=== PATIENT | female | born 1965 | race Caucasian/White ===

== ENCOUNTER 2017-08-15 12:36 | Emergency (ER) | payer MEDICAID, SELFPAY ==
[2017-08-15 12:37] VITALS: BP 153/94; PULSE 88; RESP 16; TEMP 36.7; O2SAT 97; BMI 33.6
--- NOTE | 2017-08-15 12:46 | RAD_ITS ---
STUDY: X-RAY - RIGHT SHOULDER REASON FOR EXAM: Female, 52 years old. Right shoulder pain following a fall. TECHNIQUE: 2 view(s) of the shoulder. COMPARISON: None. FINDINGS: Normal glenohumeral articulation. Normal acromioclavicular joint. Normal acromion. Normal humeral head and visualized proximal humerus. The soft tissue structures are unremarkable. Normal visualized pulmonary apex. RAD/Shoulder min 2 Views IMPRESSION: Normal x-ray examination of the shoulder. Electronically Signed: Eric Vee MD at 13:18 EDT Tel [phone], Service support ,
--- NOTE | 2017-08-15 12:49 | ED.VISSUMM ---
- ER Visit Summary Date of Service: 08/15/17 Chief Complaint: Right shoulder and arm pain History of Present Illness: The patient is a 52 F who tripped and fell, injuring her right upper arm. She states her right arm twisted behind her. She is complaining of pain to the right shoulder and upper arm. She is right-hand dominant. She states when she moves her right arm she gets pain that shoots from her shoulder down to her wrist. Patient denies striking her head. She denies lower extremity injury. She is not on anticoagulants. Physical Examination: Vital signs are significant for blood pressure 153/94, otherwise normal. Patient sitting upright in bed. She is alert and talkative. Head and neck examination was no external sign of trauma. She has no midline cervical tenderness. Heart is regular rate and rhythm. Lung sounds are clear. Right upper extremity examination was tenderness across the right shoulder and over the upper humerus. Strong distal pulses are noted. There is no tenderness over the clavicle, elbow, or forearm. Strong distal pulses are noted. Good sensation is noted. Test Results: Right shoulder and right humerus x-rays are obtained and unremarkable. Emergency Department Course and Treatment: Patient is given [place] for pain. I discussed with her that x-ray images are normal, but she still may have a ligament or tendon injury. She will follow-up with her orthopedic physician for further testing. Treatment Plan: [] Disposition: Discharge Impression: Right shoulder sprain, suspect internal derangement This note was generated with [employer] dictation software. It may contain incorrect words, spelling, and punctuation that were not noted in review of the chart prior to signing ED Disposition - Plan for ED Patient: Chief Complaint: Upper Extremity Injury Referrals: Bi Higgins [Primary Care Provider] -
[2017-08-15] MEDS: HYDROcodone Bitartrate/Apap 5/325 Tablet PO ×2 (12:50→14:05)
--- NOTE | 2017-08-15 13:05 | RAD_ITS ---
STUDY: X-RAY - RIGHT HUMERUS REASON FOR EXAM: Female, 52 years old. Severe pain following a fall. TECHNIQUE: 2 view(s) of the humerus. COMPARISON: None. FINDINGS: Normal visualized humerus. There is no demonstrated fracture or osseous destructive process. There is no demonstrated soft tissue abnormality. RAD/Humerus min 2 Views IMPRESSION: Normal x-ray examination of the humerus. Electronically Signed: Eric Vee MD at 13:25 EDT Tel [phone], Service support ,
--- NOTE | 2017-08-15 14:05 | DCINST.ED_ITS ---
ED Disposition - Plan for ED Patient: Disposition: Home or Assisted Living Chief Complaint: Upper Extremity Injury Instructions: ED Sprain Shoulder Prescriptions: Hydrocodone/Acetaminophen [[place] 5-325 Tablet] 1 - 2 each PO 4X/DAY PRN PRN 5 Days #20 tablet PRN Reason: Pain Referrals: Elijah Davis MD [STAFF PHYSICIAN] - As soon as possible
[2017-08-15 14:12] VITALS: BP 159/87; PULSE 63; RESP 16; O2SAT 95
== END 2017-08-15 14:17 | disposition home or self-care (01) ==
PROVIDERS: Emergency Provider Emergency Medicine; Family Provider Family Medicine; PCP Family Medicine
DX: S43.401A Unspecified sprain of right shoulder joint, initial encounter (principal); K21.9 Gastro-esophageal reflux disease without esophagitis; Z72.0 Tobacco use; Z79.899 Other long term (current) drug therapy; W01.0XXA Fall on same level from slipping, tripping and stumbling without subsequent striking against object, initial encounter; Y93.01 Activity, walking, marching and hiking; Y92.89 Other specified places as the place of occurrence of the external cause; Y99.8 Other external cause status
CPT/HCPCS: 73030; 73060; 99283

== ENCOUNTER → 2019-04-12 12:46 | Outpatient (CLI) | payer MEDICAID, SELFPAY ==
--- NOTE | 2019-04-12 13:50 | CT_ITS ---
CT of the left lower extremity without contrast INDICATION: Preop knee arthroplasty, Arthur protocol. TECHNIQUE: Multiple thin section axial CT images of the left hip joint, left knee joint, and left ankle joint were obtained and filmed in bone windows. Furthermore, multiple sagittal and coronal reconstructions were performed. FINDINGS: No abnormal soft tissue mass, lymphadenopathy, fluid collection. No acute fracture or dislocation. No lytic or blastic lesions. No left hip arthrosis. Moderate left knee arthrosis particularly in the medial compartment with a small joint effusion. No tibiotalar joint arthrosis. IMPRESSION: Moderate left knee arthrosis. Electronically Signed: Lopez Real MD at 8:57 EST Tel , Service support , CT/Extremity Lower without Contra
== END ==
PROVIDERS: PCP Family Medicine; Referring Provider Orthopaedic Surgery; Visit Provider Orthopaedic Surgery
DX: M17.0 Bilateral primary osteoarthritis of knee (principal); M21.162 Varus deformity, not elsewhere classified, left knee
CPT/HCPCS: 73700

== ENCOUNTER 2019-04-23 11:01 | Observation (INO) | payer MEDICAID, SELFPAY ==
[2019-04-12 13:18] VITALS: BP 158/94; PULSE 78; RESP 16; TEMP 36.7; O2SAT 98; BMI 35.1
--- NOTE | 2019-04-12 13:31 | SDCEKG_ITS ---
Test Reason : Blood Pressure : / mmHG Vent. Rate : 076 BPM Atrial Rate : 076 BPM P-R Int : 162 ms QRS Dur : 076 ms QT Int : 380 ms P-R-T Axes : 061 038 053 degrees QTc Int : 427 ms Normal sinus rhythm Normal ECG Confirmed by NEL MARAVILLA, CAITLYN ([id number]), senior technical editor MEY BOYKIN ([id number]) on 04/16/2019 8:38:29 AM Referred By: Edgar Jefferson Confirmed By:JOSIE NEUMANN MD
[2019-04-23] VITALS (14 sets, daily range): BP systolic 104–162; BP diastolic 46–92; PULSE 56–82; RESP 16–20; TEMP 36.1–37.3; O2SAT 94–100; BMI 35.1; BMI 35.2
[2019-04-23 09:36] LABS: Bedside Glucose 95 mg/dL (70-110)
[2019-04-23] MEDS: Triamcinolone Acetonide 40 MG/ML Vial (09:52)
[2019-04-23] MEDS: Acetaminophen 500 MG Tablet 1000 MG PO ×2 (09:56→21:04)
[2019-04-23] MEDS: Gabapentin 600 MG Tablet PO (09:56)
[2019-04-23 10:02] LABS: Magnesium 2.1 mg/dL (1.6-2.6)
[2019-04-23] MEDS: Lactated Ringers 1,000 ML 999 ML IV (10:20)
[2019-04-23] MEDS: Cefazolin 2 GM in 0.9% Normal Saline 100 ML IV (10:51)
--- NOTE | 2019-04-23 11:02 | RAD_ITS ---
STUDY: X-RAY - LEFT KNEE REASON FOR EXAM: Female, 54 years old. POST-OP TOTAL KNEE. TECHNIQUE: 2 view(s) of the knee. COMPARISON: None. FINDINGS: There is a left knee arthroplasty with overlying skin dav and subcutaneous gas compatible with a 3 part left knee replacement in anatomic position and alignment. RAD/Knee 1 or 2 Views IMPRESSION: Post left knee arthroplasty. Electronically Signed: Selina Manjarrez MD at 13:41 EDT Tel , Service support ,
--- NOTE | 2019-04-23 11:05 | KNEE_PTH ---
PATIENT: TARI BHATTI LOC: MS3 U#:[id number] AGE/SX: 54/F ROOM: [facility] [place] RE04/23/[address]: Dr. Edgar Jefferson DO : 1965 BED: 1 DIS: 04/24/2019 SPEC #: [id number] RECD: 04/23/19 12:59 STATUS: JOHNATHAN REQ #: [id number] CONRAD: 04/23/19 11:[address]: Edgar Jefferson DEPT: SURGICAL PATHOLOGY RECD BY: Jarred Catalan ENTERED: 04/23/19 14:00 SP TYPE: TOTAL KNEE OTHR DR: Dr. Bi Higgins DO Tissues: Knee, NOS Procedures: Decalcification bone/plaque Surgery Specimen Level IV HEADER OPERATION: ERAS, left total knee replacement robotic arm assist PRE-OP DIAGNOSIS: Bilateral primary osteoarthritis TISSUE SUBMITTED: Left knee bone and soft tissue MICROSCOPIC DIAGNOSIS Bone and soft tissue, left knee, total knee replacement/resection: Pieces of bone with degenerative osteoarthritic changes. Fibroadipose tissue, fibroconnective tissue and reactive synovial tissue. BRINA:wanda 04/26/19 MICROSCOPIC DESCRIPTION Slides are reviewed. GROSS DESCRIPTION Received is one container designated bone and soft tissue left knee. The specimen consists of multiple fragments of ruiz-yellow bone measuring in aggregate 15 x 14 x 1.5 cm. Also in the specimen container are multiple fragments of yellow-white soft tissue measuring in aggregate 2 x 1 x 0.5 cm. A number of bony fragments contain articular surfaces consistent with tibial plateau and femoral condyle and displaying prominent osteophyte formation, eburnation, and bone erosion. Research Statistician sections are submitted in two cassettes as follows: 1 - soft tissue, 2 - bone after decalcification. / AM:wanda 04/23/19 TC:5 [facility]: [id number], [id number]
[2019-04-23] MEDS: Lactated Ringers 1,000 ML 100 ML IV (12:30)
[2019-04-23 13:43] LABS: Hematocrit 38.9 % (37-47); Hemoglobin 12.5 g/dL (12.0-15.0); Mean Corp Hgb Conc 32.1 g/dL (32-36); Mean Corpuscular Hgb 31.4 pg (27.0-32.0); Mean Corpuscular Volume 97.7 fL (81-99); Mean Platelet Vol. 10.3 fl (6.2-12.0); Platelet Count 243 K/mm3 (150-450); RBC Distribution Width CV 12.5 % (11.6-14.6); RBC Distribution Width SD 45.4 fl (35.1-43.9); Red Blood Count 3.98 M/mm3 (4.2-5.4); White Blood Count 6.6 K/mm3 (4.4-11.0)
[2019-04-23 13:58] LABS: Anion Gap 2 (5-15); BUN 11 mg/dL (7-18); BUN/Creat Ratio 15.3 RATIO (10-20); Calcium,Total 8.5 mg/dL (8.5-10.1); Chloride 111 mmol/L (98-107); Creatinine, Serum 0.72 mg/dL (0.55-1.02); EST Glomerular Filtration Rate 90 mL/min (>60); Est Glom Filt Rate - Afr Amer 109 mL/min (>60); Estimated Creatinine Clearance 88.88 ml/min; Glucose 114 mg/dL (74-106); Potassium 3.9 mmol/L (3.5-5.1); Sodium Level 142 mmol/L (136-145)
--- NOTE | 2019-04-23 14:45 | PCM.OPRPT ---
Report of Operation Date of Procedure: 04/23/19 Pre-Operative Diagnosis: OA b/l knees Post-Operative Diagnosis: same Surgery/Procedure Performed:: Left TKR, cortisone injection right knee supervisor detasseling crew: Torsten Ugalde Type of Anesthesia:: Spinal Anesthesiologist: Kingsley Garduno - Admit VTE Documentation VTE Present on Admission: No VTE Mechan Device Prophylaxis: SCD's, Thigh High MIGUEL Hose VTE Pharm Prophylaxis ordered?: Yes
[2019-04-23] MEDS: oxyCODONE 5 MG Tablet PO ×2 (15:37→21:03)
[2019-04-23] MEDS: Cefazolin 1 GM/50 ML BAG IV (18:43)
[2019-04-23] MEDS: 0.9% Saline Lock 10 ML Syringe IV (21:05)
[2019-04-23] MEDS: Aspirin 81 MG TAB.CHEW PO (21:05)
[2019-04-24 01:05] VITALS: BP 105/55; PULSE 66; RESP 18; TEMP 36.7; O2SAT 96
[2019-04-24] MEDS: oxyCODONE 5 MG Tablet PO ×3 (01:16→12:28)
[2019-04-24] MEDS: Cefazolin 1 GM/50 ML BAG IV (03:05)
[2019-04-24 05:47] LABS: Hematocrit 36.9 % (37-47); Hemoglobin 12.1 g/dL (12.0-15.0); Mean Corp Hgb Conc 32.8 g/dL (32-36); Mean Corpuscular Hgb 32.1 pg (27.0-32.0); Mean Corpuscular Volume 97.9 fL (81-99); Mean Platelet Vol. 10.9 fl (6.2-12.0); Platelet Count 230 K/mm3 (150-450); RBC Distribution Width CV 12.1 % (11.6-14.6); RBC Distribution Width SD 43.5 fl (35.1-43.9); Red Blood Count 3.77 M/mm3 (4.2-5.4); White Blood Count 14.4 K/mm3 (4.4-11.0)
[2019-04-24] MEDS: Acetaminophen 500 MG Tablet 1000 MG PO (05:54)
[2019-04-24] MEDS: 0.9% Saline Lock 10 ML Syringe IV (05:54)
[2019-04-24 06:12] LABS: Anion Gap 5 (5-15); BUN 16 mg/dL (7-18); BUN/Creat Ratio 22.8 RATIO (10-20); Calcium,Total 8.5 mg/dL (8.5-10.1); Chloride 106 mmol/L (98-107); EST Glomerular Filtration Rate 93 mL/min (>60); Est Glom Filt Rate - Afr Amer 113 mL/min (>60); Estimated Creatinine Clearance 91.42 ml/min; Glucose 224 mg/dL (74-106); Potassium 4.2 mmol/L (3.5-5.1); Sodium Level 139 mmol/L (136-145)
[2019-04-24 07:00] VITALS: BP 115/74; PULSE 67; RESP 14; TEMP 36.4; O2SAT 97
[2019-04-24] MEDS: Aspirin 81 MG TAB.CHEW PO (07:40)
--- NOTE | 2019-04-24 07:46 | PN.ORTHO_ITS ---
Subjective: Patient sitting at bedside eating breakfast. Patient states pain is well- managed. Denies chest pain, shortness of breath, calf pain, nausea vomiting. Patient states she is ready for discharge home. Objective: Dressings he has a 2 cm blood spot which is dry. Otherwise intact. Negative signs and symptoms of DVT. Vital signs and labs were reviewed and noted in the medical record. Patient is afebrile, neurovascular is otherwise intact. Patient is no respiratory distress, speaking in full sentences. - Physical Exam Vitals/I&O's: Vital Signs Temp Pulse Resp BP Pulse Ox 97.5 F L 67 14 115/74 97 04/24/19 07:00 04/24/19 07:00 04/24/19 07:00 04/24/19 07:00 04/24/19 07:00 Oxygen Flow Rate (L/min) 6 Oxygen Delivery Method Room Air Weight: 102 kg Body Mass Index (BMI) 35.2 Intake and Output for Last 24 Hours 04/22/19 04/23/19 04/24/19 23:59 23:59 23:59 Intake Total 2891.67 / 2891.67 350 / 350 Balance 2891.67 / 2891.67 350 / 350 General: Alert, Oriented x3, Cooperative HEENT: Atraumatic, PERRLA, EOMI, Normocephalic Neck: Supple, No JVD, Negative Carotid Bruits Lungs: Clear to auscultation, Normal air movement Cardiovascular: Regular rate, No murmurs Abdomen: Bowel Sounds Present, Soft, Non Tender Extremities: No edema, Capillary Refill Less than 3 Seconds Skin: No rashes, No breakdown Musculoskeletal: No Tenderness to Palpation of Joints or Extremities Neurological: Cranial nerves II-XII grossly intact Psych/Mental Status: Normal Affect, Appropriate, Alert and oriented to time, place, person, mood and affect Laboratory Results 04/23/19 09:32: POC Glucose 95 04/23/19 09:50: Magnesium 2.1 04/23/19 13:36: WBC 6.6, RBC 3.98 L, Hgb 12.5, Hct 38.9, MCV 97.7, MCH 31.4, MCHC 32.1, RDW Std Deviation 45.4 H, RDW Coeff of Noel 12.5, Plt Count 243, MPV 10.3 04/23/19 13:36: Sodium 142, Potassium 3.9, Chloride 111 H, Carbon Dioxide 29.0, Anion Gap 2 L, BUN 11, Creatinine 0.72, Estim Creat Clear Calc 88.88, Est GFR (MDRD) Af Amer 109, Est GFR (MDRD) Non-Af 90, BUN/Creatinine Ratio 15.3, Glucose 114 H, Calcium 8.5 04/24/19 05:20: WBC 14.4 H, RBC 3.77 L, Hgb 12.1, Hct 36.9 L, MCV 97.9, MCH 32.1 H, MCHC 32.8, RDW Std Deviation 43.5, RDW Coeff of Noel 12.1, Plt Count 230, MPV 10.9 04/24/19 05:20: Sodium 139, Potassium 4.2, Chloride 106, Carbon Dioxide 28.0, Anion Gap 5, BUN 16, Creatinine 0.70, Estim Creat Clear Calc 91.42, Est GFR (MDRD) Af Amer 113, Est GFR (MDRD) Non-Af 93, BUN/Creatinine Ratio 22.8 H, Glucose 224 H, Calcium 8.5 Current Medications Acetaminophen (Tylenol) 1,000 mg PO Q8 [facility] Last Admin: 04/24/19 05:54 Dose: 1,000 mg Documented by: Aspirin (Aspirin, Baby) 81 mg PO BID [facility] Last Admin: 04/24/19 07:40 Dose: 81 mg Documented by: Ondansetron HCl (Zofran) 4 mg IV Q8H PRN PRN PRN Reason: NAUSEA Oxycodone HCl (Oxyir) 5 - 10 mg PO Q4H PRN PRN PRN Reason: Pain Score 4-10/10 Last Admin: 04/24/19 07:39 Dose: 10 mg Documented by: Promethazine HCl (Phenergan) 12.5 mg IM Q6H PRN PRN; Protocol PRN Reason: NAUSEA/VOMITING Senna/Docusate Sodium (Senokot-S, [place]-Colace) 2 tablet PO BID [facility] Last Admin: 04/24/19 07:40 Dose: Not Given Documented by: Sodium Chloride () 10 - 40 ml IV UD PRN PRN Reason: SALINE FLUSH Last Admin: 04/24/19 05:54 Dose: 10 ml Documented by: Medical Necessity - Tobacco Use Smoking Status: Current every day smoker Tobacco Use: Cigarettes Assessment/Plan Status post left total knee arthroplasty Intra-articular injection of the right knee with 1% lidocaine, and 2 cc of Kenalog Plan 1. Continue all pain medications as prescribed 2. Continue physical therapy, weight-bear as tolerated with walker 3. Aspirin 81 mg 1 p.o. every 12 hours x30 days. 4. Encourage incentive spirometry 5. Discharge home today after p.m. therapy 6. Follow-up as scheduled.
--- NOTE | 2019-04-24 07:54 | PCM.DC.TKR ---
Discharge Diet: No Restrictions Discharge Activity: May Not Drive, May Shower, Use Walker May shower in (days): 2 Ice area for (Minutes): 20 - each hour while awake. Weight Bearing Status: Weight bearing as tolerated Elevate: Operative Extremity Additional Activity Instructions:: Wear elastic stockings for 2 weeks after your surgery. Call your doctor if your incision/area has: Continuous Slow Oozing, Sudden Increased Bleeding, Increased Pain/ Swelling, Increased Redness, Foul Smelling Discharge Call your doctor if you observe: Fever of 101 or Higher, Coldness, Increased Pain - in extremity, Numbness or Tingling, Change in Color, Calf discomfort, Uncontrolled pain Change Dressing in (Days):: 0 - and daily as needed. Remove Dressing in (days):: 8 Cleanse incision/area with: Soap & Water Allergies/Adverse Reactions: Allergies No Known Allergies Allergy (Verified 04/12/19 13:01) Medications to take at Discharge Albuterol Inhaler [Ventolin Hfa] 1 - 2 puff INHALATION Q6H PRN PRN 11/08/16 Omeprazole [Prilosec] 20 mg PO DAILY 11/08/16 Bupropion HCl [Wellbutrin Xl] 150 mg PO BID 04/12/19 Celecoxib [Celebrex] 200 mg PO DAILY 04/12/19 Acetaminophen [Tylenol] 1,000 mg PO Q8 #90 tab 04/24/19 Aspirin [Aspirin, Baby] 81 mg PO BID #60 tab.chew 04/24/19 Oxycodone [Oxyir] 5 - 10 mg PO Q4H PRN PRN 7 Days #84 tablet 04/24/19 The following prescriptions were given: Aspirin [Aspirin, Baby] 81 mg PO BID #60 tab.chew Transmission Status: Pending to [id number] Oxycodone [Oxyir] 5 - 10 mg PO Q4H PRN PRN 7 Days #84 tablet PRN Reason: Pain Score 4-10/10 Transmission Status: Sent to [facility] Acetaminophen [Tylenol] 1,000 mg PO Q8 #90 tab Transmission Status: Pending to [facility] Primary Care Physician: Bi Higgins [Primary Care Provider] - Test Results: Test results from this visit will be discussed in further detail at your follow-up appointment, if applicable. Please Follow Up With: Torsten Ugalde PA-C When: as scheduled (see pink sheet)
[2019-04-24 07:55] VITALS: BP 132/69; PULSE 73; RESP 16; TEMP 36.8; O2SAT 97
--- NOTE | 2019-04-24 11:00 | CASEMGMT ---
RN JAIDA Face to Face with patient for initial transition planning/care coordination assessment. RN CM introduced self and role at [facility]. Patient sitting in chair, alert and oriented, at bedside. Patient willing to participate in assessment and is able to answer all questions appropriately. Care providers, pharmacy, and demographics verified. Patient wishes to discharge home and is setup with [facility] for outpatient therapy. Patient states she has no further needs or concerns at this time. CM to follow for discharge planning needs that may arise. PCP: Jose Specialists: Ronny Landers Pharmacy: [facility] Insurance: [employer] Prescription Benefit: yes Living Will/HPOA: none LNOK: Living Arrangements: Patient lives with in single story home with 4 steps and railing to enter the home. Transportation: DME/HHC: Patient has shower chair, raised toilet, cane, walker, grab bars. Disposition Plan: Patient to discharge home with outpatient therapy, family support, and follow-up plans in place. Roxy GONZALEZ, RN, CM
== END 2019-04-24 12:58 | disposition home or self-care (01) ==
LOC: SDC 12:27 → MS3 12:27
PROVIDERS: Admitting Provider Orthopaedic Surgery; PCP Family Medicine; Referring Provider Orthopaedic Surgery; Visit Provider Orthopaedic Surgery
PROC: 0SRD0JZ Replacement of Left Knee Joint with Synthetic Substitute, Open Approach (ICD-10-PCS; CPT 27447; principal; 2019-04-23 10:35)
DX: M17.0 Bilateral primary osteoarthritis of knee (principal); F17.210 Nicotine dependence, cigarettes, uncomplicated; Z79.899 Other long term (current) drug therapy; J45.909 Unspecified asthma, uncomplicated; F32.9 Major depressive disorder, single episode, unspecified; H54.7 Unspecified visual loss; M21.162 Varus deformity, not elsewhere classified, left knee; K21.9 Gastro-esophageal reflux disease without esophagitis; F41.9 Anxiety disorder, unspecified
CPT/HCPCS: 01400; 20610; 27447; 64447; S2900; 36415; 73560; 80048; 82962; 83735; 85027; 87081; 88305; 88311; 93005; 96365; 96366; 97110; 97116; 97161; 97166; 97530; 99218; 99406; C1776; J7120; A4216; G0378; G0379

== ENCOUNTER → 2019-04-27 10:14 | Outpatient (CLI) | payer MEDICAID, SELFPAY ==
[2019-04-23 14:41] VITALS: BMI 35.2
--- NOTE | 2019-04-27 10:22 | VDLE_ITS ---
Reason For Study: Pain LLE Procedure LEFT Exam performed in department. GSV is normal. A preliminary report was called and/or faxed CFV is compressible, spontaneous, phasic, to Ronny. competent, and demonstrates normal augmentation. FV is compressible, spontaneous, phasic, competent and demonstrates normal augmentation. POP V is compressible, spontaneous, phasic, competent and demonstrates normal augmentation. T/P Trunk is compressible. PTV is compressible. LT PerV is compressible. Interpretation Summary Deep veins of the left lower extremity are patent and compressible segmentally. There is no evidence of left lower extremity deep vein thrombosis. Valvular competence appears intact within the proximal deep venous system on the left . The left great saphenous vein appears patent and compressible segmentally. Ordering Physician: Edgar Jefferson Referring Physician: Bi Higgins Performed By: Roxy Newton RVT
== END ==
PROVIDERS: PCP Family Medicine; Referring Provider Orthopaedic Surgery; Visit Provider Orthopaedic Surgery
DX: M79.662 Pain in left lower leg (principal)
CPT/HCPCS: 93971

== ENCOUNTER → 2019-06-19 11:20 | Outpatient (CLI) | payer MEDICAID, SELFPAY ==
[2019-04-23 14:41] VITALS: BMI 35.2
--- NOTE | 2019-06-19 11:23 | VDLE_ITS ---
Reason For Study: Pain RIGHT LEFT CFV is compressible, spontaneous, phasic, GSV is normal. competent and demonstrates normal CFV is compressible, spontaneous, phasic, augmentation. competent, and demonstrates normal Procedure augmentation. Exam performed in department. FV is compressible, spontaneous, phasic, A preliminary report was called and/or faxed competent and demonstrates normal to Ronny. augmentation. POP V is compressible, spontaneous, phasic, competent and demonstrates normal augmentation. T/P Trunk is compressible. PTV is compressible. LT PerV is compressible. Interpretation Summary Deep veins of the left lower extremity are patent and compressible segmentally. There is no evidence of left lower extremity deep vein thrombosis. Valvular competence appears intact within the proximal deep venous system on the left . The left great saphenous vein appears patent and compressible segmentally. Ordering Physician: Edgar Jefferson Referring Physician: Bi Higgins Performed By: Roxy Newton RVT
== END ==
PROVIDERS: PCP Family Medicine; Visit Provider Orthopaedic Surgery
DX: M79.605 Pain in left leg (principal)
CPT/HCPCS: 93971

== ENCOUNTER → 2019-06-25 14:51 | Outpatient (CLI) | payer MEDICAID, SELFPAY ==
[2019-04-23 14:41] VITALS: BMI 35.2
--- NOTE | 2019-06-25 14:58 | RAD_ITS ---
STUDY: X-RAY CHEST REASON FOR EXAM: Female, 54 years old. HEMOPTYSIS, COUGHING SINCE QUIT SMOKING May TECHNIQUE: PA and lateral views of the chest. COMPARISON: Comparison is made with prior study dated July 28, 2009. FINDINGS: The lungs are clear and expanded. Scattered calcified granulomas. There is no demonstrated pleural abnormality. Normal size heart. Normal mediastinum and reina. Normal visualized pulmonary arteries. There is atherosclerotic calcification of the aortic arch with tortuosity. There are mild degenerative changes of the visualized thoracic spine. Normal visualized ribs, clavicles, and shoulders. There is no demonstrated abnormality of the visualized soft tissue structures of the upper abdomen. RAD/Chest PA and Lateral IMPRESSION: No acute abnormality is seen. Electronically Signed: Eric Vee, at 15:33 EDT , Service support ,
--- OUTSIDE RECORDS SUMMARY | 2019-11-27 08:42 | XMS RPT_ITS | CCD ---
:1965 External Reference #:[id number] Author Organization [facility] Care Team Providers Name Role Phone Unavailable Unavailable Unavailable Results Result Name Value Range Unit Interpretation Flag Date Location ct chest w/ contrast on 2019-07-11 CT Chest w/ Patient Name: TONYA BHATTI Normal 07-11-2019 [facility] Right Hemisphere Contrast System (0 0000) CT Exam Date/Time 07/11/2019 09:10:[address] Chest w/ Contrast Ordering Physician DO SAMUEL EUGENE F. Accession Number [id number] CPT4 Codes 54338 (), Q9967 (CT ISOVUE 370MG/[id number]) Reason For Exam hemoptysis, correction smoker Report CT chest with contrast HISTORY: Smoking, hemoptysis Protocol: 3 mm axial images with intravenous contrast Lungs and pleural spaces are clear. No lymphadenopathy. Adre nal glands are normal. No osseous abnormality. IMPRESSION: Normal examination. Report Dictated on Workstation: [id number] Final Dictating Physician: MD CHAU MALAY Signed Date and Time: 07/11/2019 1:18 pm Signed by: MD CHAU MALAY Transcribed Date and Time: 07/11/2019 1:19 progress on 2018-11 PROGRESS HNO ID: [id number] Normal 12-12-2018 [facility] Author: Lori Wong [facility] ([id number]) Service: ? Author Type: ? Type: Progress Notes Filed: 12/12/2018 11:38 AM Note Text: Radiology Service Progress Note PATIENT NAME: Tonya Gutiérrez DATE OF SERVICE: December 12, 2018 TIME: 11:38 AM PATIENT IDENTITY VERIFICATION COMPLETED USING TWO (2) METHOD S: Name and Date of confirmed by patient verbally. PATIENT GENDER DATA: Female. status: : No status: NO. PATIENT RELEVANT IMPLANT DATA REVIEWED: Not Applicable RADIOLOGY DEPARTMENT: Mammography PERIPHERAL IV DATA: Not applicable SIGNED BY: Lori Marvin Rt December 12, 2018 11:38 AM PROGRESS HNO ID: [id number] Normal 12-12-2018 [facility] Author: Deyanira Rock [facility] ([id number]) Service: ? Author Type: Perinatal Nurse Type: Progress Notes Filed: 12/12/2018 11:38 AM Note Text: Radiology Service Progress Note PATIENT NAME: Tonya Gutiérrez DATE OF SERVICE: December 12, 2018 TIME: 11:38 AM PATIENT IDENTITY VERIFICATION COMPLETED USING TWO (2) METHOD S: Name and Date of confirmed by patient verbally. PATIENT GENDER DATA: Female. status: : No status: N/A PATIENT RELEVANT IMPLANT DATA REVIEWED: Not Applicable RADIOLOGY DEPARTMENT: Ultrasound PERIPHERAL IV DATA: Not applicable SIGNED BY: DEYANIRA ROCK RDMS RVT December 12, 2018 11:38 AM [facility] [employer] breast Simalaya rt on 2018-12-12 [facility] US BREAST * * *Final Report* * * Normal [facility] RT DATE OF EXAM: Dec 12 2018 11:33AM [facility] ([id number]) WRU [id number] - [facility] BREAST [facility] RT / PROCEDURE REASON: Breast lump on right side at 7 o'clock pos ition * * * * Physician Interpretation * * * * #[id number] - [facility] DIAGNOSTIC ZAKI #[id number] - [facility] BREAST [facility] RT BILATERAL DIGITAL DIAGNOSTIC MAMMOGRAM WITH CAD: 12/12/2018 HISTORY: Breast Lump right /SEE TECH NOTE ,\BILATERAL DIAGNO STIC MAMMOGRAM Breast Lump On Right Side At 7 O'Clock Position. RESULT: TECHNIQUE: The study was acquired using full field digital t echnology and interpreted from soft copy. Current study was also evaluated with a Computer Aided Detec tion (CAD). Comparison is made to exams dated: 11/09/2017 mammogram - [facility] and 10/13/2016 mammogram - [facility]. The tissue of both breasts is predominantly fatty. No significant masses, calcifications, or other findings are seen in either breast. IMPRESSION: INCOMPLETE: NEEDS ADDITIONAL IMAGING EVALUATION There is no abnormality seen in the right breast to correspo nd with the palpable abnormality, however, ultrasound is recommended. LIMITED ULTRASOUND OF RIGHT BREAST: 12/12/2018 RESULT: Comparison is made to exams dated: 11/09/2017 mammogram - [facility] and 10/13/2016 mammogram - [facility] nter. Color flow and real-time ultrasound of the right breast lowe r outer quadrant were performed. Rinaldi scale images of the real-time examination were reviewed. There is a benign dilated duct in the right breast at 8 o'cl ock anterior depth. This dilated duct displays no posterior acoustic shad owing or enhancement. This correlates as palpated. IMPRESSION: BENIGN FINDING There is no sonographic evidence of malignancy. The dilated duct in the right breast is consistent with duct ectasia and is benign. There is a small duct at the site of clinical con cern. No evidence of a mass. Correlate clinically to determine if thi s represents the palpable abnormality of concern. Return to annual mammogram screening schedule is recommended . Jorje Bhakta M.D. tab/penrad:12/12/2018 11:39:33 Multiple national specialty organizations have released fifi st cancer screening guidelines for women at average risk for developin g breast cancer - guidelines that are based on both evidence and opin ion, yet differ on when to start and how often to screen for breast c ancer. With representation from Breast Imaging, Internal Medicine, Women 's Health, Family Medicine, and Medical/Surgical Oncology, the [facility] has carefully reviewed the data and reached the following consen carrie: 1) All women should engage in shared decision-making with eir providers to decide when to start and how often to screen; 2) All women should have the opportunity to start screening mammography at age 40; 3) For women ages 45-55, we recommend annual screening mammo grams; 4) For women ages 55 and over, we support both the transitio n from an annual to a biennial interval if this aligns more with patie nt's values and preferences, or continuation with annual screening; 5) All women should discuss with their providers when to sto p screening mammograms. Leaf Sucker Operator(s): RT Vicki(R)(M), [facility]; Deyanira Rock [facility] letter sent: Return to Annual OVERALL STUDY BIRADS: 2 Benign finding Truck Service Technician: Mariposa Transcribe Date/Time: Dec 12 2018 10:45A Dictated by : JORJE BHAKTA MD This examination was interpreted and the report reviewed and electronically signed by: JORJE BHAKTA MD on Dec 12 2018 11:39AM EST [id number] [facility] diagnostic zaki on 2018-12-12 [facility] DIAGNOSTIC ZAKI * * *Final Report* * * Normal 12-12-2018 [facility] DATE OF EXAM: Dec 12 2018 10:44AM Goodman WRW [id number] - [facility] DIAGNOSTIC ZAKI / ([id number]) PROCEDURE REASON: Breast lump on right side at 7 o'clock pos ition * * * * Physician Interpretation * * * * RESULT: #[id number] - [facility] DIAGNOSTIC ZAKI #[id number] - [facility] US BREAST LTD RT BILATERAL DIGITAL DIAGNOSTIC MAMMOGRAM WITH CAD: 12/12/2018 HISTORY: Breast Lump right /SEE TECH NOTE ,\BILATERAL DIAGNO STIC MAMMOGRAM Breast Lump On Right Side At 7 O'Clock Position. RESULT: TECHNIQUE: The study was acquired using full field digital t echnology and interpreted from soft copy. Current study was also evaluated with a Computer Aided Detec tion (CAD). Comparison is made to exams dated: 11/09/2017 mammogram - [facility] and 10/13/2016 mammogram - [facility] nter. The tissue of both breasts is predominantly fatty. No significant masses, calcifications, or other findings are seen in either breast. IMPRESSION: INCOMPLETE: NEEDS ADDITIONAL IMAGING EVALUATION There is no abnormality seen in the right breast to correspo nd with the palpable abnormality, however, ultrasound is recommended. LIMITED ULTRASOUND OF RIGHT BREAST: 12/12/2018 RESULT: Comparison is made to exams dated: 11/09/2017 mammogram - [facility] and 10/13/2016 mammogram - [facility] nter. Color flow and real-time ultrasound of the right breast lowe r outer quadrant were performed. Rinaldi scale images of the real-time examination were reviewed. There is a benign dilated duct in the right breast at 8 o'cl ock anterior depth. This dilated duct displays no posterior acoustic shad owing or enhancement. This correlates as palpated. IMPRESSION: BENIGN FINDING There is no sonographic evidence of malignancy. The dilated duct in the right breast is consistent with duct ectasia and is benign. There is a small duct at the site of clinical con cern. No evidence of a mass. Correlate clinically to determine if thi s represents the palpable abnormality of concern. Return to annual mammogram screening schedule is recommended . Jorje lynn/mariposa:12/12/2018 11:39:33 Multiple national specialty organizations have released fifi st cancer screening guidelines for women at average risk for developin g breast cancer - guidelines that are based on both evidence and opin ion, yet differ on when to start and how often to screen for breast c ancer. With representation from Breast Imaging, Internal Medicine, Women 's Health, Family Medicine, and Medical/Surgical Oncology, the [facility] has carefully reviewed the data and reached the following consen carrie: 1) All women should engage in shared decision-making with eir providers to decide when to start and how often to screen; 2) All women should have the opportunity to start screening mammography at age 40; 3) For women ages 45-55, we recommend annual screening mammo grams; 4) For women ages 55 and over, we support both the transitio n from an annual to a biennial interval if this aligns more with patie nt's values and preferences, or continuation with annual screening; 5) All women should discuss with their providers when to sto p screening mammograms. Leaf Sucker Operator(s): Lori Wong, RT(R)(M), [facility]; Deyanira Rock, [facility] letter sent: Return to Annual OVERALL STUDY BIRADS: 2 Benign finding Truck Service Technician: Mariposa Transcribe Date/Time: Dec 12 2018 10:45A Dictated by: JORJE BHAKTA MD This examination was interpreted and the report reviewed and electronically signed by: JORJE BHAKTA MD on Dec 12 2018 11:39AM EST [id number] cnco on 2018-12-12 [facility] HNO ID: [id number] Normal 12-12-2018 [facility] Author: Mammography Coordinator ([id number]) Service: ? Author Type: Physician Type: Letter Filed: 12/13/2018 11:32 PM Note Text: December 12, 2018 PID: [id number] Tonya Gutiérrez [address] [place] [address] Dear Ms. Gutiérrez, We are pleased to inform you that the results of your recent breast imaging exam on 12/12/2018 are normal and we recommend that you return to your annual screening Mammography schedule. Early detection of cancer is very important. We also underst and recommendations regarding breast cancer screening are contro versial. Please discuss with your primary care provider which strateg y is best for you and whether a mammogram is right for you. Your imaging studies and report will be kept on file at [facility] as part of your permanent medical record and are available f or your continuing care. Thank you for allowing us to help in meeting your health car e needs. Sincerely, Dr. Bhakta Interpreting Radiologist [facility] (Return to Annual Mammogram schedule) [facility] HNO ID: [id number] Normal 12-12-2018 [facility] Author: Mammography Coordinator ([id number]) Service: ? Author Type: Physician Type: Letter Filed: 12/13/2018 11:32 PM Note Text: December 12, 2018 PID: [id number] Tonya Gutiérrez [address] [place] [address] Dear Ms. Gutiérrez, We are pleased to inform you that the results of your recent breast imaging exam on 12/12/2018 are normal and we recommend that you return to your annual screening Mammography schedule. Early detection of cancer is very important. We also underst and recommendations regarding breast cancer screening are contro versial. Please discuss with your primary care provider which strateg y is best for you and whether a mammogram is right for you. Your imaging studies and report will be kept on file at [facility] as part of your permanent medical record and are available f or your continuing care. Thank you for allowing us to help in meeting your health car e needs. Sincerely, Dr. Bhakta Interpreting Radiologist [facility] (Return to Annual Mammogram schedule) progress on 2018-11 PROGRESS HNO ID: [id number] Normal 11-30-2018 [facility] Author: Rachel Corona ([id number]) Service: ? Author Type: Physician Type: Progress Notes Filed: 11/30/2018 9:45 AM Note Text: Tonya Gutiérrez is a 53 year old who presents for he r annual gynecologic exam with complaints, uterine prolapse. Bulging worse as day goes on. Not painful, pressure. Tries t o reduce it. Sometimes feels like bladder doesn't empty completely. Drink s coffee, propel. Sometimes feels it is difficult to start stream, has to change positions. No menses since ablation. Hot flashes and night sweats noted . Few times a day, better than a couple of months ago. Postmenopausal: likely. HRT use: No. Last Pap: 11/21/2017 normal HPV: 11/14/2017 negative History of abnormal pap: yes Last mammogram: 2017 normal History of abnormal mammogram: No Sexually active: Yes OB History T3 L3 SAB0 TAB1 Ectopic0 Multiple0 Live Births3 PAST MEDICAL HISTORY Diagnosis Date - Anxiety - Depression - Diverticulosis - Esophageal reflux Gastroesophageal reflux - Hyperplastic rectal polyp - Rotator cuff tear - Unspecified asthma(493.90) PAST SURGICAL HISTORY Procedure Laterality Date - COLONOSCOPY 10/26/2018 sessile , hyperplasitc rectal polyp , diverticulosis - COLPOSCOPY W BX CERVIX 11/12/2016 - HYSTEROSCOPY, SURGICAL; WITH ENDOME 11/12/2016 Nancy - LIGATE FALLOPIAN TUBE 03/04/1988 FAMILY HISTORY Problem Relation Age of Onset - Hypertension Mother - Alzheimer's Disease Mother age 67 - Breast Cancer Mother 69 - Diabetes Father - Heart Maternal Grandmother - Diabetes Maternal Grandmother - Heart Maternal Grandfather - Cancer Maternal Grandfather lung and tongue - Cancer Maternal Uncle liver - Diabetes Maternal Aunt - Diabetes Maternal Uncle - Seizures Paternal Aunt mothers family - Asthma Paternal Aunt mothers family - other (migraines) Paternal Aunt migraines: takes shots - other (htn) Paternal Aunt - other (heartattack) Paternal Aunt - Cancer Brother 52 liver SOCIAL HISTORY Social History Tobacco Use - Smoking status: Current Every Day Smoker Packs/day: 1.00 Years: 24.00 Pack years: 24.00 Types: Cigarettes - Smokeless tobacco: Never Used Substance Use Topics - Alcohol use: No - Drug use: No REVIEW OF SYSTEMS Abdomen: No abdominal pain, nausea, vomiting, diarrhea, or c onstipation. No bloating, early satiety, indigestion, or increased flatul ence. Bladder: see HPI Breast: No breast lumps, nipple d/c, overlying skin changes, redness or skin retraction Allergies and current medication updated:Yes EXAM: Ht 5' 6 (1.68m) Wt 215 lb (97.5kg) BMI 34.72 kg/( m2). GENERAL: pleasant, female in no apparent distress HEENT: Normocephalic, atraumatic, mucus membranes moist and no lesions NECK: Supple, full range of motion, no adenopathy and thyroi d normal DERMATOLOGY: Normal, without lesions, non-icteric and non-hi rsute BREAST: soft, non-tender, symmetric, no dominant mass on lef t, normal nipple-areolar complex, no lymphadenopathy and no nipple dis charge, on right under areola there at 6-7 there is a 1 cm oval, dense area, not mobile, poorly delineated from remaining tissues CHEST: Normal inspiratory effort ABDOMEN: soft, non-tender and no masses PELVIC: external genitalia normal, normal Bartholin's glands , urethra, Nikiski's glands, no vulvar lesions, no cervical lesions, phys iologic discharge present, normal appearing perineal body and perian al region, cystocele 2nd degree, rectocele 1st degree, cervical prolaps e 2nd degree, lateral wall bulging as well BIMANUAL: uterus normal size, shape and consistency, no adne xal masses and non-tender RECTOVAGINAL: deferred. NEURO: alert and oriented x3,exam grossly non-focal EXTREMITIES: normal ASSESSMENT/PLAN: 1) Health maintenance: colonoscopy up to date check diagnostic mammo symptomatic prolapse, would like to consider surgery, consul t w/ urogyn and return for pessary fitting in interim encouraged decrease bladder irritants declines flu vaccine 2) Follow up one year or sooner as needed MD bob Arreola on 2018-11-30 [facility] Office Visit ([facility]) Normal 11-30-2018 [facility] TONYA Rai ([id number]) 1965 F [facility] Date Time Provider Department ([id number]) 11/30/18 9:00 AM RACHEL MARIANO During your visit today, we recorded the following informati on about you: Blood pressure Weight Height 128/84 97.5 kg 1.676 m Rachel Mariano MD 11/30/2018 9:45 AM Signed Tonya Gutiérrez is a 53 year old who presents for he r annual gynecologic exam with complaints, uterine prolapse. Bulging worse as day goes on. Not painful, pressure. Tries t o reduce it. Sometimes feels like bladder doesn't empty compl etely. Drinks coffee, propel. Sometimes feels it is difficult to start stream, has to cuellar ge positions. No menses since ablation. Hot flashes and night sweats noted . Few times a day, better than a couple of months ago. Postmenopausal: likely. HRT use: No. Last Pap: 11/21/2017 normal HPV: 11/14/2017 negative History of abnormal pap: yes Last mammogram: 2017 normal History of abnormal mammogram: No Sexually active: Yes OB History T3 L3 SAB0 TAB1 Ectopic0 Multiple0 Live Births3 PAST MEDICAL HISTORY Diagnosis Date - Anxiety - Depression - Diverticulosis - Esophageal reflux Gastroesophageal reflux - Hyperplastic rectal polyp - Rotator cuff tear - Unspecified asthma(493.90) PAST SURGICAL HISTORY Procedure Laterality Date - COLONOSCOPY 10/26/2018 sessile , hyperplasitc rectal polyp , diverticulosis - COLPOSCOPY W BX CERVIX 11/12/2016 - HYSTEROSCOPY, SURGICAL; WITH ENDOME 11/12/2016 Nancy - LIGATE FALLOPIAN TUBE 03/04/1988 FAMILY HISTORY Problem Relation Age of Onset - Hypertension Mother - Alzheimer's Disease Mother age 67 - Breast Cancer Mother 69 - Diabetes Father - Heart Maternal Grandmother - Diabetes Maternal Grandmother - Heart Maternal Grandfather - Cancer Maternal Grandfather lung and tongue - Cancer Maternal Uncle liver - Diabetes Maternal Aunt - Diabetes Maternal Uncle - Seizures Paternal Aunt mothers family - Asthma Paternal Aunt mothers family - other (migraines) Paternal Aunt migraines: takes shots - other (htn) Paternal Aunt - other (heartattack) Paternal Aunt - Cancer Brother 52 liver SOCIAL HISTORY Social History Tobacco Use - Smoking status: Current Every Day Smoker Packs/day: 1.00 Years: 24.00 Pack years: 24.00 Types: Cigarettes - Smokeless tobacco: Never Used Substance Use Topics - Alcohol use: No - Drug use: No REVIEW OF SYSTEMS Abdomen: No abdominal pain, nausea, vomiting, diarrhea, or constipation. No bloating, early satiety, indigestion, or increased flatulenc e. Bladder: see HPI Breast: No breast lumps, nipple d/c, overlying skin ch anges, redness or skin retraction Allergies and current medication updated:Yes EXAM: Ht 5' 6 (1.68m) Wt 215 lb (97.5kg) BMI 34.72 kg/( m2). GENERAL: pleasant, female in no apparent distress HEENT: Normocephalic, atraumatic, mucus membranes moist and no lesions NECK: Supple, full range of motion, no adenopathy and thyroi d normal DERMATOLOGY: Normal, without lesions, non-icteric and non-hi rsute BREAST: soft, non-tender, symmetric, no dominant mass on lef t, normal nipple-areolar complex, no lymphadenopathy and no nipp le discharge, on right under areola there at 6-7 there is a 1 c m oval, dense area, not mobile, poorly delineated from remaining tissues CHEST: Normal inspiratory effort ABDOMEN: soft, non-tender and no masses PELVIC: external genitalia normal, westley l Bartholin's glands, urethra, Nikiski's glands, no vulvar lesions, no cervical l esions, physiologic discharge present, normal appearing perineal body and perianal region, cystocel e 2nd degree, rectocele 1st degree, cervic al prolapse 2nd degree, lateral wall bulging as well BIMANUAL: uterus normal size, shape and consistency, no adne xal masses and non-tender RECTOVAGINAL: deferred. NEURO: alert and oriented x3,exam grossly non-focal EXTREMITIES: normal ASSESSMENT/PLAN: 1) Health maintenance: colonoscopy up to date check diagnostic mammo symptomatic prolapse, would like to consider surgery, cons ult w/ urogyn and return for pessary fitting in interim encouraged decrease bladder irritants declines flu vaccine 2) Follow up one year or sooner as needed Rachel Mariano MD Referring Provider: SELF [[id number]] Allergies As of Date: 11/30/2018 Noted Allergy Reaction SULFAMETHOXAZOLE-TRIMETHOPRIM 07/20/2005 8 - GI Upset 14 - Other: See Comments Date Reviewed: 11/30/2018 Reviewed by: Paige De La Torre Ma - Fully Assessed Reason for Visit: Yearly Exam [187] Primary Visit Diagnosis:History of abnormal cervical Pap sme ar [Z87.42] Other Visit Diagnoses:Encounter for screening for mayelin n papillomavirus (HPV) [Z11.51] Pap smear for cervical cancer screening [Z12.4] Encounter for screening mammogram for breast cancer [Z12.31] Cystocele, midline [N81.11] Complete uterovaginal prolapse [N81.3] Bladder dysfunction [N31.9] Breast lump on right side at 7 o'clock position [N63.13] Encounter for gynecological examination with abnormal finding [Z01.411] Order(s):[facility] SCREENING [1093877] Order #: [id number] FUTURE PAP FLUID CERVICAL SCREENING [9707452] Order #: [id number] [facility] DIAGNOSTIC BILAT [2698990] Order #: [id number] FUTURE BREAST LTD RT [[id number]] Order #: [id number] FUTURE CONSULT TO URO GYNECOLOGY [[id number]] Order #: [id number]: 1 Prescriptions as of 11/30/2018 Sig: CELECOXIB 200 MG CAPSULE Take 200 mg by mouth. CHOLECALCIFEROL (VITAMIN D3) * OMEPRAZOLE 40 MG CAPSULE,NIRAJ* DULERA 100 MCG-5 MCG/ACTUATIO* ALBUTEROL SULFATE HFA 90 MCG/* Inhale as instructed. IRON ORAL Take by mouth. HYDROCODONE 5 MG-ACETAMINOPHE* IBUPROFEN 600 MG TABLET Take 1 tablet by mouth every * Patient not taking: Reported on 10/09/2018 Problem List As Of Date 11/30/2018 Noted Resolved SEBACEOUS CYST [L72.3] INVALID FOR* ASTHMA UNSPECIFIED [J45.909] INVALID FOR* ESOPHAGEAL REFLUX [K21.9] INVALID FOR* TOBACCO USE DISORDER [F17.200] INVALID FOR* Uterine prolapse [N81.4] INVALID FOR* Cystocele, midline [N81.11] INVALID FOR* Lump or mass in breast [N63.0] INVALID FOR* Menorrhagia with irregular cycle [N92.1] INVALID FOR* Other correction (current) drug therapy [Z79.899]INVALID FOR* Change in bowel habits [R19.4] INVALID FOR* Mild asthma [J45.909] INVALID FOR* Disposition: Return in 1 year (on 12/01/2019) for Annual Monico mayberry Follow-up and Disposition History Recorded Encounter Status:Closed by RACHEL MARIANO MD on 11/30/18 surgical pathology on 2018-10-26 SURGICAL Specimen originated from [facility] Normal 10-26-2018 [facility] PATHOLOGY Specimen #: [id number] Clinic Submitting Physician: AROLDO BLOUNT [facility] ([id number]) FINAL DIAGNOSIS 1. Colon, biopsy (A) - Colonic mucosa with no diagnostic abn ormalities. 2. Colon, rectal polyp, biopsy (B) - Hyperplastic polyp. - No adenomatous epithelium identified. [facility] [place]/pastor 10/27/2018 Edgar Fajardo M.D., Ph.D. (Electronic Signature) SPECIMEN SUBMITTED A: RANDOM COLON, BIOPSIES B: RECTAL POLYP CLINICAL DATA CHANGE IN BOWEL HABITS GROSS DESCRIPTION A. Received in formalin are multiple pieces of ruiz, soft t issue aggregating to 1.2 x 0.2 x 0.2 cm. Totally submitted in one cassette. B. Received in formalin is one piece of ruiz, soft tissue tracy suring 0.5 x 0.2 x 0.2 cm. Totally submitted in one cassette. Gross examination performed at [facility], [address] [place] [address] 10/27/2018 1:25:18 AM Date of Report: 10/28/2018 Date of Procedure: 10/26/2018 Date of Receipt: 10/26/2018 Submitted by: AROLDO BLOUNT [facility] Diagnostic interpretation performed at [facility], [address] [facility] [address] [place] Number: [id number] obsolete on 2018-10 OBSOLETE Procedure (ASCNOR) Normal 10-26-2018 [facility] JAREDTONYA FARRIS ([id number]) 1965 F [facility] Date Time Provider Department ([id number]) 10/26/18 8:30 AM AROLDO BLOUNT During your visit today, we recorded the following informati on about you: Temperature Pulse Respiration Blood pressure 97.9 degrees 60/minute 16/minute 115/70 Weight Height 93.9 kg 1.676 m Sharee Topete RN 10/26/2018 7:50 AM Signed AMBULATORY PATIENT EDUCATION NOTE TOPIC: GI PROCEDURES: colonoscopy READINESS TO LEARN INSTRUCTION PROVIDED TO: Patient, readness to learn accessed prior to procedure, Family member and Patient and family member COGNITIVE ABILITY: Alert and oriented PTED MOTIVATION TO LEARN: Interested FAMILY SUPPORT: High - Very involved in pt care IPATIENT LEARNS BEST BY: Individual Instruction Written Instruction - Hand-outs Verbal Instruction FACTORS AFFECTING LEARNING: None PHYSICAL LIMITATIONS AFFECTING LEARNING: None Sharee Topete RN 10/26/2018 7:48 AM Signed Discharge instructions given and patient voices unders tanding. All questions answered. Sharee Blount MD 10/26/2018 8:56 AM Signed HISTORY AND PHYSICAL Tonya Serge Gutiérrez, 53 year old female Current history and physical on file: No Is a new History and Physical required for today's visit? Ye s Indication for procedure: Change in bowel movements PROCEDURE(S) SCHEDULED FOR: Colonoscopy with or without biopsies and with or without rem oval of polyps or lesions, dilation (any means), treatment of b leeding (any means), based on clinical findings. BASELINE BEHAVIOR: Calm BASELINE ORIENTATION: A AND O x3 All medications and allergies reviewed: Yes Skin Assessment: Warm dry muscus membranes pink Airway/Respiratory Assessment: Airway: visualization of the uvula- Yes Mouth: opening greater than 2 fingerbreadths- Yes Neck: full range of motion- Yes Breath sounds clear/equal- Yes Cardiac Assessment: Regular rate and rhythm without murmur Abdominal Assessment: Abdomen soft, non-tender, no masses or organomegaly. Sedation Plan: MAC Additional Comments: None MD Sharee Holly RN 10/26/2018 9:03 AM Signed POST OP LEARNING RESPONSE INSTRUCTION PROVIDED TO: Patient and family member METHOD OF INSTRUCTION: Written instruction - handouts Verbal instruction PATIENT / FAMILY RESPONSE: Verbalizes understanding of: POST -OPERATIVE INSTRUCTIONS-Correct actions to take to reduce postoperative complications FOLLOW-UP PLAN: Contact information given. SUPPLEMENTAL MATERIAL: Brochures given to patien t: diverticulosis, high fiber diet, colon polyp REFERRAL (RECOMMENDATION): None Electronically Signed By: Arcenio Topete RN In Department: AMBULATORY SURGERY Rebeca Smith APRN.CRNA 10/26/2018 11:00 AM Signed POST ANESTHESIA EVALUATION NOTE SERVICE DATE: 10/26/2018 SERVICE TIME: 9:00 AM : 1965 Vitals: 10/26/18 0811 10/26/18 0849 Temp: 36.9 ?C (98.4 ?F) 36.6 ?C (97.9 ?F) 10/26/18 0811 10/26/18 0849 BP: 155/75 115/70 10/26/18 0811 10/26/18 0849 Pulse: 68 60 10/26/18 0811 10/26/18 0849 Resp: 16 16 10/26/18 0811 10/26/18 0849 SpO2: 96% 96% Validated Vital Signs: Yes POST ANES STATUS: No apparent anesthetic complications. The patient is appropriately hydrated with stable respiratory and cardiovas cular status. Patient has safe and adequate airway con trol. The patient has appropriate pain relief and no significant post operative nausea or vom iting. The patient has achieved baseline mental status. Further assessment by Anesthesia Service: None Other Remarks: SIGNATURE: Rebeca Smith APRN.CRNA PATIENT NAME: Tonya Gutiérrez DATE: October 26, 2018 TIME: 11:00 AM PAGER/CONTACT #: [phone] Referring Provider: AROLDO BLOUNT [[id number]] Allergies As of Date: 10/26/2018 Noted Allergy Reaction SULFAMETHOXAZOLE-TRIMETHOPRIM 07/20/2005 8 - GI Upset 14 - Other: See Comments Date Reviewed: 10/26/2018 Reviewed by: Laura Rob RN - Fully Assessed Reason for Visit: Outpatient Colonoscopy [482] Cmt: change in bowel habits Visit Diagnosis:Change in bowel habits [R19.4] Order(s):COLONOSCOPY - DIAGNOSTIC [[id number]] Order #: [id number]. #:[id number] SURGICAL PATHOLOGY [[id number]] Order #: [id number] Prescriptions as of 10/26/2018 Sig: CELECOXIB 200 MG CAPSULE Take 200 mg by mouth. CHOLECALCIFEROL (VITAMIN D3) * OMEPRAZOLE 40 MG CAPSULE,NIRAJ* ALBUTEROL SULFATE HFA 90 MCG/* Inhale as instructed. IRON ORAL Take by mouth. HYDROCODONE 5 MG-ACETAMINOPHE* DULERA 100 MCG-5 MCG/ACTUATIO* IBUPROFEN 600 MG TABLET Take 1 tablet by mouth every * Patient not taking: Reported on 10/09/2018 Problem List As Of Date 10/26/2018 Noted Resolved SEBACEOUS CYST [L72.3] INVALID FOR* ASTHMA UNSPECIFIED [J45.909] INVALID FOR* ESOPHAGEAL REFLUX [K21.9] INVALID FOR* TOBACCO USE DISORDER [F17.200] INVALID FOR* Uterine prolapse [N81.4] INVALID FOR* Cystocele, midline [N81.11] INVALID FOR* Lump or mass in breast [N63.0] INVALID FOR* Menorrhagia with irregular cycle [N92.1] INVALID FOR* Other correction (current) drug therapy [Z79.899]INVALID FOR* Change in bowel habits [R19.4] INVALID FOR* Mild asthma [J45.909] INVALID FOR* Other instructions from your clinician: Discharge instructions given and patient voices sanjeev g. All questions answered. Sharee Topete RN Visit Notes: >> Sharee Topete RN [facility] Oct 26, 2018 7:48 AM Status: Sign ed AMBULATORY PATIENT EDUCATION NOTE TOPIC: GI PROCEDURES: colonoscopy READINESS TO LEARN INSTRUCTION PROVIDED TO: Patient, readness to learn accessed prior to procedure, Family member and Patient and family member COGNITIVE ABILITY: Alert and oriented PTED MOTIVATION TO LEARN: Interested FAMILY SUPPORT: High - Very involved in pt care IPATIENT LEARNS BEST BY: Individual Instruction Written Instruction - Hand-outs Verbal Instruction FACTORS AFFECTING LEARNING: None PHYSICAL LIMITATIONS AFFECTING LEARNING: None Sharee Topete RN >> Sharee Topete RN [facility] Oct 26, 2018 9:02 AM Status: Sign ed POST OP LEARNING RESPONSE INSTRUCTION PROVIDED TO: Patient and family member METHOD OF INSTRUCTION: Written instruction - handouts Verbal instruction PATIENT / FAMILY RESPONSE: Verbalizes understanding of: POST -OPERATIVE INSTRUCTIONS-Correct actions to take to reduce postoperative complications FOLLOW-UP PLAN: Contact information given. SUPPLEMENTAL MATERIAL: Brochures given to patient: diverticu losis, high fiber diet, colon polyp REFERRAL (RECOMMENDATION): None Electronically Signed By: Sharee Topete RN In Department: AMBULATORY SURGERY >> Rebeca Smith [facility] Oct 26, 2018 11:00 AM Status: S igned POST ANESTHESIA EVALUATION NOTE SERVICE DATE: 10/26/2018 SERVICE TIME: 9:00 AM : 1965 Vitals: 10/26/18 0811 10/26/18 0849 Temp: 36.9 ?C (98.4 ?F) 36.6 ?C (97.9 ?F) 10/26/18 0811 10/26/18 0849 BP: 155/75 115/70 10/26/18 0811 10/26/18 0849 Pulse: 68 60 10/26/18 0811 10/26/18 0849 Resp: 16 16 10/26/18 0811 10/26/18 0849 SpO2: 96% 96% Validated Vital Signs: Yes POST ANES STATUS: No apparent anesthetic complications. The patient is appropriately hydrated with stable respiratory and cardiovas cular status. Patient has safe and adequate airway control. The patient arzate s appropriate pain relief and no significant post operative nausea or vomi ting. The patient has achieved baseline mental status. Further assessment by Anesthesia Service: None Other Remarks: SIGNATURE: Rebeca Smith APRN.CRNA PATIENT NAME: Tonya Gutiérrez DATE: October 26, 2018 TIME: 11:00 AM PAGER/CONTACT #: [phone] Disposition: Return for As scheduled. Follow-up and Disposition History Recorded Encounter Status:Closed by AROLDO BLOUNT on 10/26/18 history physical on 2018-10-26 HISTORY PHYSICAL HNO ID: [id number] Normal 10-15 [facility] Author: Aroldo Corona ([id number]) Service: ? Author Type: Physician Type: HANDP Filed: 10/26/2018 8:56 AM Note Text: HISTORY AND PHYSICAL Tonya Gutiérrez, 53 year old female Current history and physical on file: No Is a new History and Physical required for today's visit? Ye s Indication for procedure: Change in bowel movements PROCEDURE(S) SCHEDULED FOR: Colonoscopy with or without biopsies and with or without rem oval of polyps or lesions, dilation (any means), treatment of bleedi ng (any means), based on clinical findings. BASELINE BEHAVIOR: Calm BASELINE ORIENTATION: A AND O x3 All medications and allergies reviewed: Yes Skin Assessment: Warm dry muscus membranes pink Airway/Respiratory Assessment: Airway: visualization of the uvula- Yes Mouth: opening greater than 2 fingerbreadths- Yes Neck: full range of motion- Yes Breath sounds clear/equal- Yes Cardiac Assessment: Regular rate and rhythm without murmur Abdominal Assessment: Abdomen soft, non-tender, no masses or organomegaly. Sedation Plan: MAC Additional Comments: None Aroldo Blount MD progress on 2018-09 PROGRESS HNO ID: [id number] Normal 10-09-2018 [facility] Author: Aroldo Corona ([id number]) Service: ? Author Type: Physician Type: Progress Notes Filed: 10/09/2018 2:45 PM Note Text: CHIEF COMPLAINT: bowel habitus change HPI:Tonya Gutiérrez is a 53 year old female developed loose stools; once a day; this started about 4 months ago. Denies any hematochezi a. Record Review: [facility] / Outside records reviewed. PAST MEDICAL HISTORY Diagnosis Date - Anxiety - Depression - Esophageal reflux Gastroesophageal reflux - Rotator cuff tear - Unspecified asthma(493.90) PAST SURGICAL HISTORY Procedure Laterality Date - COLPOSCOPY W BX CERVIX 11/12/2016 - HYSTEROSCOPY, SURGICAL; WITH ENDOME 11/12/2016 Nancy - LIGATE FALLOPIAN TUBE 03/04/1988 Allergies: ALLERGIES Allergen Reactions - Sulfamethoxazole-Tr* GI Upset, Other: See Comments Medications: celecoxib (CELEBREX) 200 mg capsule Take 200 mg by mouth. cholecalciferol (VITAMIN D3) 1,000 unit tab tablet Omeprazole 40 mg capsule DULERA 100-5 mcg/actuation inhaler albuterol HFA (PROVENTIL HFA, VENTOLIN HFA) 90 mcg/actuation inhaler Inhale as instructed. predniSONE (DELTASONE) 10 mg tablet Take 2 tablets by mouth once daily for 5 days. ferrous sulfate (IRON ORAL) Take by mouth. HYDROcodone-acetaminophen (NORCO) 5-325 mg per tablet ibuprofen (MOTRIN) 600 mg tablet Take 1 tablet by mouth ever y 6 hours as needed. FOR PAIN. FAMILY HISTORY Problem Relation Age of Onset - Hypertension Mother - Alzheimer's Disease Mother age 67 - Breast Cancer Mother 69 - Diabetes Father - Heart Maternal Grandmother - Diabetes Maternal Grandmother - Heart Maternal Grandfather - Cancer Maternal Grandfather lung and tongue - Cancer Maternal Uncle liver - Diabetes Maternal Aunt - Diabetes Maternal Uncle - Seizures Paternal Aunt mothers family - Asthma Paternal Aunt mothers family - other (migraines) Paternal Aunt migraines: takes shots - other (htn) Paternal Aunt - other (heartattack) Paternal Aunt - Cancer Brother 52 liver Employer And Job Title: None on file Years Of Education Completed: Not specified Marital Status: Single with 3 children Social History Tobacco Use - Smoking status: Current Every Day Smoker Packs/day: 1.00 Years: 24.00 Pack years: 24.00 Types: Cigarettes - Smokeless tobacco: Never Used Substance Use Topics - Alcohol use: No - Drug use: No Review of Systems: Review of Systems Respiratory: Positive for shortness of breath. Gastrointestinal: Positive for diarrhea. Change in bowel habits Are you taking any blood thinners? No Physical Examination: BP 122/76 Pulse 76 Ht 5' 6 (1.68m) Wt 207 lb (93.9kg) SpO2 98% BMI 33.43 kg/(m2). Physical Exam Constitutional: She is oriented to person, place, and time. She appears well-developed and well-nourished. HENT: Head: Normocephalic. Eyes: Pupils are equal, round, and reactive to light. Conjun ctivae and EOM are normal. Neck: Normal range of motion. Neck supple. Cardiovascular: Normal rate, regular rhythm, normal heart so unds and intact distal pulses. Pulmonary/Chest: Effort normal. She has decreased breath snow nds. Abdominal: Soft. Bowel sounds are normal. Musculoskeletal: Normal range of motion. Neurological: She is alert and oriented to person, place, an d time. She has normal reflexes. Skin: Skin is warm and dry. Psychiatric: She has a normal mood and affect. Her behavior is normal. Judgment and thought content normal. Vitals reviewed. Assessment: Change in bowel habits Mild intermittent asthma without complication Plan: Office Visit on 10/09/18 - COLONOSCOPY - DIAGNOSTIC - IV DISCONTINUE - INSERT IV ([place]) - INSERT IV [place]) Return in about 2 months (around 12/09/2018). I have confirmed and edited as necessary, the PFSH and ROSY romero btained by others. Aroldo Blount MD DATE: 10/09/18 TIME: 2:40 PM cnov on 2018-10-09 CNOV Office Visit (GSTNOR) Normal 10-10-19 [facility] Pradeep TONYA GUTIÉRREZ ([id number]) 1965 F [facility] Time Provider Department ([id number]) 10/09/18 3:00 PM AROLDO BLOUNT During your visit today, we recorded the following informati on about you: Pulse Blood pressure Weight Height 76/minute 122/76 93.9 kg 1.676 m Aroldo Blount MD 10/09/2018 2:45 PM Signed CHIEF COMPLAINT: bowel habitus change HPI:Tonya Gutiérrez is a 53 year old female developed loose stools; once a day; this started about 4 months ago. Denies any hematochezia. Record Review: [facility] / Outside records reviewed. PAST MEDICAL HISTORY Diagnosis Date - Anxiety - Depression - Esophageal reflux Gastroesophageal reflux - Rotator cuff tear - Unspecified asthma(493.90) PAST SURGICAL HISTORY Procedure Laterality Date - COLPOSCOPY W BX CERVIX 11/12/2016 - HYSTEROSCOPY, SURGICAL; WITH ENDOME 11/12/2016 Nancy - LIGATE FALLOPIAN TUBE 03/04/1988 Allergies: ALLERGIES Allergen Reactions - Sulfamethoxazole-Tr* GI Upset, Other: See Comments Medications: celecoxib (CELEBREX) 200 mg capsule Take 200 mg by mouth. cholecalciferol (VITAMIN D3) 1,000 unit tab tablet Omeprazole 40 mg capsule DULERA 100-5 mcg/actuation inhaler albuterol HFA (PROVENTIL HFA, VENTOLIN H FA) 90 mcg/actuation inhaler Inhale as instructed. predniSONE (DELTASONE) 10 mg tablet Take 2 tablets by mouth once daily for 5 days. ferrous sulfate (IRON ORAL) Take by mouth. HYDROcodone-acetaminophen (NORCO) 5-325 mg per tablet ibuprofen (MOTRIN) 600 mg tablet Take 1 tablet by mouth ever y 6 hours as needed. FOR PAIN. FAMILY HISTORY Problem Relation Age of Onset - Hypertension Mother - Alzheimer's Disease Mother age 67 - Breast Cancer Mother 69 - Diabetes Father - Heart Maternal Grandmother - Diabetes Maternal Grandmother - Heart Maternal Grandfather - Cancer Maternal Grandfather lung and tongue - Cancer Maternal Uncle liver - Diabetes Maternal Aunt - Diabetes Maternal Uncle - Seizures Paternal Aunt mothers family - Asthma Paternal Aunt mothers family - other (migraines) Paternal Aunt migraines: takes shots - other (htn) Paternal Aunt - other (heartattack) Paternal Aunt - Cancer Brother 52 liver Employer And Job Title: None on file Years Of Education Completed: Not specified Marital Status: Single with 3 children Social History Tobacco Use - Smoking status: Current Every Day Smoker Packs/day: 1.00 Years: 24.00 Pack years: 24.00 Types: Cigarettes - Smokeless tobacco: Never Used Substance Use Topics - Alcohol use: No - Drug use: No Review of Systems: Review of Systems Respiratory: Positive for shortness of breath. Gastrointestinal: Positive for diarrhea. Change in bowel habits Are you taking any blood thinners? No Physical Examination: BP 122/76 Pulse 76 Ht 5' 6 (1.68m) Wt 207 lb (93.9kg) SpO2 98% BMI 33.43 kg/(m2). Physical Exam Constitutional: She is oriented to person, place, and time. She appears well-developed and well-nourished. HENT: Head: Normocephalic. Eyes: Pupils are equal, round, and react john to light. Conjunctivae and EOM are normal. Neck: Normal range of motion. Neck supple. Cardiovascular: Normal rate, regular rhythm, normal heart sounds and intact distal pulses. Pulmonary/Chest: Effort normal. She has decreased breath snow nds. Abdominal: Soft. Bowel sounds are normal. Musculoskeletal: Normal range of motion. Neurological: She is alert and oriented to person, place, and time. She has normal reflexes. Skin: Skin is warm and dry. Psychiatric: She has a westley l mood and affect. Her behavior is normal. Judgment and thought content normal. Vitals reviewed. Assessment: Change in bowel habits Mild intermittent asthma without complication Plan: Office Visit on 10/09/18 - COLONOSCOPY - DIAGNOSTIC - IV DISCONTINUE - INSERT IV ([place]) - INSERT IV ([place]) Return in about 2 months (around 12/09/2018). I have confirmed and edited as necessary , the PFSH and ROS obtained by others. Aroldo Blount MD DATE: 10/09/18 TIME: 2:40 PM Aroldo Blount MD 10/09/2018 2:42 PM Signed How to Prepare for Your [place] noscopy Using Golytely, Nulytely, Trilyte or Colyte Preparations with General Anesthesia IMPORTANT - Read These Instructions at Least 2 Weeks B efore your Colonoscopy Cardenas Instructions: ? Your bowel must be empty so that your doctor can clearly view your colon. Follow all of the instructions in this handout EXACTLY as they are written. If you do NOT follow the directions for when to start drinki ng the bowel preparation, your colonoscopy WILL be cancelled. ? Do NOT eat any solid food the ENTIRE day before your colon oscopy. ? Buy your bowel preparation at least 5 days before your col onoscopy. ? Do NOT mix the solution until the day before your colonosc opy. Designated Digital Sales Planner on the Day of Your Exam A responsible family member or friend MUST come with y ou to your colonoscopy and REMAIN in the endoscopy area until y ou are discharged. You are NOT ALLOWED to drive, take a taxi or bus, or leave the Endoscopy C enter ALONE. If you do not have a responsible transport truck driver (family member or friend ) with you to take you home, you exam cannot be done with sedation and will be canc elled. Medications Some of the medications you take may need to be stopped or adjusted before your colonoscopy. You MUST call the doctor who ordered any of the following medicines at least 2 weeks before your colonoscopy. ? Blood thinners - such as Coumadin (warfarin), Plavix (clopidogrel), Ticlid (ticlopidine hydrochloride), Agrylin (anagrelide), Xarelto ( Rivaroxaban), Pradaxa (Dabigatran), Eliquis (Apixaban), and Effient (Prasu grel). ? Insulin or diabetes pills. Please call the doctor that monitors your glucose levels. Your insulin dosage may need to be adjusted due to t he diet restrictions required with this bowel pr eparation. (Please bring your diabetes medicines with you on the day of your procedure.) If you take aspirin, take it and ALL other medications presc ribed by your doctor. On the day of your colonoscopy, take your medicati ons with a sip of water. Five (5) Days Before Your Colonoscopy ? Do NOT take medicines that stop diarrhea - such as I modium, Kaopectate, or Pepto Bismol. ? Do NOT take fiber supplements - such as Metamucil, Citruce l, or Perdiem. ? Do NOT take products that contain iron - such as mul ti-vitamins (the label lists what is in the products). ? Do NOT take Vitamin E. Buy the prescription bowel preparation solution at your [facility] or drugstore pharmacy. Three (3) Days Before Your Colonoscopy ? Do NOT eat high-fiber food s - such as popcorn, beans, seeds (flax, sunflower, quinoa), multigrain bread, nuts, salad/vegetables, or fresh and dried fruit. One (1) Day Before Your Colonoscopy Only drink clear liquids the ENTIRE DAY before your colono scopy. Do NOT eat any solid foods. Drink at least 8 ounces of clear liquids ev josephine hour after waking up. The clear liquids you can drink include: ? Water, apple, or white grape juice; broth; coffee or tea (without milk or creamer); clear carbonated beverages such as dario brandon or lemon-chalkyitsik soda; Gatorade or other sports drinks (not red); Ross-Aid or other flavored drinks (not red). You may eat plain jello or other gelatins (not red) or pop sicles (not red). Do NOT drink alcohol on the day before or the day of the pro cedure. When to Mix and Drink Your Bowel Prep Follow the instructions on the label. After mixi ng, place the solution in the refrigerator for a couple of hours before drinking. You may add the flavor pack that came with the bowel preparation. Do NOT add ice, s ugar or any flavorings to the solution. Evening Before Your Colonoscopy ? Start drinking the bowel preparation at 6 PM the evening b efore your colonoscopy. Drink an 8-oz glass of bowel preparation ever y 10 minutes. You must finish drinking the solution by 9 PM the night before y our scheduled procedure. ? You may continue to drink clear liquids until midnight. Do NOT eat or drink ANYTHING after midni ght the night before your procedure or your procedure may be cancelled. This is for your safe ty and will reduce the risk of having any food or liquid in your stomach move into your lungs (aspiration) during a procedure. If you take aspirin, take it and ALL other presc ribed medicines with a sip of water on the day of your colonoscopy. Referring Provider: MARCUS ROSE [[id number]] Allergies As of Date: 10/09/2018 Noted Allergy Reaction SULFAMETHOXAZOLE-TRIMETHOPRIM 07/20/2005 8 - GI Upset 14 - Other: See Comments Date Reviewed: 10/09/2018 Reviewed by: Marguerite Barton LPN - Fully Assessed Reason for Visit: loose stools [Other] Cmt: CT showed nonobstructing left re nal calcification Visit Diagnoses:Change in bowel habits [R19.4] Mild intermittent asthma without complication [J45.20] Order(s):INSERT IV ([place], [place]) [[id number]] Order #: [id number]: 1 FUTURE IV DISCONTINUE [[id number]] Order #: [id number]: 1 FUTURE INSERT IV ([place]) [[id number]] Order #: [id number]: 1 COLONOSCOPY - DIAGNOSTIC [[id number]] Order #: [id number] FUTUR E predniSONE (DELTASONE) 10 mg tabletTake 2 tablets by mouth o nce daily for 5 days.Disp: 10 tabletRfl: 0 Prescriptions as of 10/09/2018 Sig: CELECOXIB 200 MG CAPSULE Take 200 mg by mouth. CHOLECALCIFEROL (VITAMIN D3) * OMEPRAZOLE 40 MG CAPSULE,NIRAJ* DULERA 100 MCG-5 MCG/ACTUATIO* ALBUTEROL SULFATE HFA 90 MCG/* Inhale as instructed. PREDNISONE 10 MG TABLET Take 2 tablets by mouth once * IRON ORAL Take by mouth. HYDROCODONE 5 MG-ACETAMINOPHE* IBUPROFEN 600 MG TABLET Take 1 tablet by mouth every * Patient not taking: Reported on 10/09/2018 Problem List As Of Date 10/09/2018 Noted Resolved SEBACEOUS CYST [L72.3] INVALID FOR* ASTHMA UNSPECIFIED [J45.909] INVALID FOR* ESOPHAGEAL REFLUX [K21.9] INVALID FOR* TOBACCO USE DISORDER [F17.200] INVALID FOR* Uterine prolapse [N81.4] INVALID FOR* Cystocele, midline [N81.11] INVALID FOR* Lump or mass in breast [N63.0] INVALID FOR* Menorrhagia with irregular cycle [N92.1] INVALID FOR* Other manager long term care (current) drug therapy [Z79.899]INVALID FOR* Change in bowel habits [R19.4] INVALID FOR* Mild asthma [J45.909] INVALID FOR* Other instructions from your clinician: How to Prepare for Your Colonoscopy Using Golytely, Nulytely , Trilyte or Colyte Preparations with General Anesthesia IMPORTANT - Read These Instructions at Least 2 Weeks Before your Colonoscopy Cardenas Instructions: ? Your bowel must be empty so that your doctor can clearly v iew your colon. Follow all of the instructions in this handout EXACTL Y as they are written. If you do NOT follow the directions for when to start drinki ng the bowel preparation, your colonoscopy WILL be cancelled. ? Do NOT eat any solid food the ENTIRE day before your colon oscopy. ? Buy your bowel preparation at least 5 days before your col onoscopy. ? Do NOT mix the solution until the day before your colonosc opy. Designated Digital Sales Planner on the Day of Your Exam A responsible family member or friend MUST come with you to your colonoscopy and REMAIN in the endoscopy area until you are d ischarged. You are NOT ALLOWED to drive, take a taxi or bus, or leave [facility] ALONE. If you do not have a responsible transport truck driver (famil y member or friend) with you to take you home, you exam cannot be done w ith sedation and will be cancelled. Medications Some of the medications you take may need to be stopped or a djusted before your colonoscopy. You MUST call the doctor who ordered any o f the following medicines at least 2 weeks before your colonoscopy . ? Blood thinners - such as Coumadin (warfarin), Plavix (clop idogrel), Ticlid (ticlopidine hydrochloride), Agrylin (anagrelide), Xa relto (Rivaroxaban), Pradaxa (Dabigatran), Eliquis (Apixaban), and Effient (Prasugrel). ? Insulin or diabetes pills. Please call the doctor that mon itors your glucose levels. Your insulin dosage may need to be adjusted due to the diet restrictions required with this bowel preparation. (Ple ase bring your diabetes medicines with you on the day of your procedur e.) If you take aspirin, take it and ALL other medications presc ribed by your doctor. On the day of your colonoscopy, take your medication s with a sip of water. Five (5) Days Before Your Colonoscopy ? Do NOT take medicines that stop diarrhea - such as Imodium , Kaopectate, or Pepto Bismol. ? Do NOT take fiber supplements - such as Metamucil, Citruce l, or Perdiem. ? Do NOT take products that contain iron - such as multi-vit amins (the label lists what is in the products). ? Do NOT take Vitamin E. Buy the prescription bowel preparation solution at your [facility] or drugstore pharmacy. Three (3) Days Before Your Colonoscopy ? Do NOT eat high-fiber foods - such as popcorn, beans, seed s (flax, sunflower, quinoa), multigrain bread, nuts, salad/vegetables , or fresh and dried fruit. One (1) Day Before Your Colonoscopy Only drink clear liquids the ENTIRE DAY before your colonosc opy. Do NOT eat any solid foods. Drink at least 8 ounces of clear liquid s every hour after waking up. The clear liquids you can drink include: ? Water, apple, or white grape juice; broth; coffee or tea ( without milk or creamer); clear carbonated beverages such as dario brandon o r lemon-chalkyitsik soda; Gatorade or other sports drinks (not red); Ross-Aid or other flavored drinks (not red). You may eat plain jello or other gelatins (not red) or popsi cles (not red). Do NOT drink alcohol on the day before or the day of the pro cedure. When to Mix and Drink Your Bowel Prep Follow the instructions on the label. After mixing, place th e solution in the refrigerator for a couple of hours before drinking. You may add the flavor pack that came with the bowel preparation. Do NOT add ice, sugar or any flavorings to the solution. Evening Before Your Colonoscopy ? Start drinking the bowel preparation at 6 PM the evening b efore your colonoscopy. Drink an 8-oz glass of bowel preparation every 10 minutes. You must finish drinking the solution by 9 PM the night befo re your scheduled procedure. ? You may continue to drink clear liquids until midnight. Do NOT eat or drink ANYTHING after midnight the night before your procedure or your procedure may be cancelled. This is for yo ur safety and will reduce the risk of having any food or liquid in your st omach move into your lungs (aspiration) during a procedure. If you take aspirin, take it and ALL other prescribed medici fina with a sip of water on the day of your colonoscopy. Prescriptions ordered this encounter Disp Refills Start End PREDNISONE 10 MG TABLET 10 t* 0 10/09/2018 10/14/2018 Route: ORAL Sig: Take 2 tablets by mouth once daily for 5 days. Disposition: Return in about 2 months (around 12/09/2018). Follow-up and Disposition History Recorded Encounter Status:Closed by AROLDO BLOUNT on 10/09/18 cnco on 2018-10-09 [facility] Letter Text Normal 10-09-2018 [facility] ([id number]) hemogram w/ autodiff on 2018-08-16 Abs Baso Cnt 0.0 0.0-0.2 10*3/uL Normal 08-16-2018 [facility] ([id number]) Comment: Performed By: #### HEMDF ### # [facility] [address] [place] [address] Abs Neutrophile Cnt 4.3 1.8-7.0 10*3/uL Normal 08-16-2018 [facility] ([id number]) Comment: Performed By: #### HEMDF ### # [facility] [address] [place] [address] Basophils/100 WBC (Bld) 0.4 0.0-2.0 % Normal 2018 [facility] ([id number]) Comment: Performed By: #### HEMDF ### # [facility] [address] [place] [address] Eosinophils (Bld) [#/Vol] 0.1 0.0-0.5 10*3/uL Normal [facility] ([id number]) Comment: Performed By: #### HEMDF ### # [facility] [address] [place] [address] Eosinophils/100 WBC (Bld) 1.3 1.0-6.0 % Normal [facility] ([id number]) Comment: Performed By: #### HEMDF ### # [place] [address] [place] [address] Erythrocyte distribution 13.1 11.5-14.5 % Normal 08-16 [facility] width (RBC) [Ratio] ([id number]) Comment: Performed By: #### HEMDF ### # [facility] [address] [place] [address] Granulocytes/100 WBC (Bld) 62.0 40.0-80.0 % Normal [facility] ([id number]) Comment: Performed By: #### HEMDF ### # [facility] [address] [place] [address] Hematocrit (Bld) [Volume 39.8 35.0-47.0 % Normal 08-16 [facility] fraction] ([id number]) Comment: Performed By: #### HEMDF ### # [facility] [address] [place] [address] Hemoglobin (Bld) 13.4 11.7-16.0 g/dL Normal 08-16-2018 [facility] [Mass/Vol] ([id number]) Comment: Performed By: #### HEMDF ### # [facility] [address] [place] [address] Lymphocytes (Bld) [#/Vol] 1.9 1.0-4.3 10*3/uL Normal [facility] ([id number]) Comment: Performed By: #### HEMDF ### # [facility] [address] [place] [address] Lymphocytes/100 WBC (Bld) 27.2 20.0-40.0 % Normal [facility] ([id number]) Comment: Performed By: #### HEMDF ### # [facility] [address] [place] [address] MCH (RBC) [Entitic mass] 31.8 26.0-34.0 pg Normal 08-16 [facility] ([id number]) Comment: Performed By: #### HEMDF ### # [facility] [address] [place] [address] MCHC (RBC) [Mass/Vol] 33.7 32.0-36.0 % Normal 08-17-19 19 [facility] ([id number]) Comment: Performed By: #### HEMDF ### # [facility] [address] [place] [address] MCV (RBC) [Entitic vol] 94.3 79.0-98.0 fL Normal 2018 [facility] ([id number]) Comment: Performed By: #### HEMDF ### # [facility] [address] [place] [address] Monocytes (Bld) [#/Vol] 0.6 0.0-0.8 10*3/uL Normal 2018 [facility] ([id number]) Comment: Performed By: #### HEMDF ### # [facility] [address] [place] [address] Monocytes/100 WBC (Bld) 9.1 2.0-10.0 % Normal 2018 [facility] ([id number]) Comment: Performed By: #### HEMDF ### # [facility] [address] [place] [address] Platelet mean volume (Bld) 8.4 7.4-10.4 fL Normal [facility] [Entitic vol] ([id number] ) Comment: Performed By: #### HEMDF ### # [facility] [address] [place] [address] Platelets (Bld) [#/Vol] 265 140-440 10*3/uL Normal 2018 [facility] ([id number]) Comment: Performed By: #### HEMDF ### # [facility] [address] [place] [address] RBC (Bld) [#/Vol] 4.22 3.80-5.20 10*6/uL Normal 08-16-2018 [facility] ([id number]) Comment: Performed By: #### HEMDF ### # [facility] [address] [place] [address] WBC (Bld) [#/Vol] 7.0 3.6-10.7 10*3/uL Normal 08-16-2018 [facility] ([id number]) Comment: Performed By: #### HEMDF ### # [facility] [address] [place] [address] ct abdomen/pelvis w/ contrast on 2018-08-16 CT Abdomen/Pelvis Patient Name: TONYA GUTIÉRREZ 08-16-2018 [facility] w/ Contrast [facility] ([id number]) CT Exam Date/Time 08/16/2018 17:09:[address] Abdomen/Pelvis w/ IV Contrast (IV Onl Ordering Physician DO ROSE PAUL E. Accession Number [id number] CPT4 Codes 63025 (CT Abdomen/Pelvis w/ IV Contrast (IV Onl), Q9967 (CT ISOVUE 370MG/[id number]) Reason For Exam . Report CT ABDOMEN AND PELVIS WITH CONTRAST CLINICAL INDICATION: Left upper quadrant pain and diarrhea. TECHNIQUE: CT scan of the abdomen and pelvis, with IV cont rast. Multiplanar reformations. COMPARISON: March,. FINDINGS: Abdomen: Visualized lung bases grossly unremarkable. No radiopaque gallstones. Liver without significant abnormality. Spleen without significant abnormality. Pancreas without significant abnormality. Punctate calcification in left kidney without significant hy dronephrosis. Left renal cyst measures approximately 1.2 cm. Right kidney gross ly unremarkable. Adrenal glands without significant abnormality. Pelvis: Bowel grossly unremarkable. Appendix within normal limits. No significant, free peritoneal fluid or apparent adenopathy . Abdominal aorta is nonaneurysmal. Degenerative change in the L5-S1 level. IMPRESSION: 1. Nonobstructing, left renal calcification. 2. No other acute findings. Report Dictated on Workstation: [id number] Final Dictating Physician: MD DE WENDELL Signed Date and Time: 08/16/2018 5:22 pm Signed by: MD DE WENDELL Transcribed Date and Time: 08/16/2018 5:23 Summary Purpose Family History No Family History Records FoundNo Family History Records Found Advance Directives No Advanced Directives Records FoundNo Advanced Directives Records Found Additional Source Comments FOR RECORDS PERTAINING TO PATIENTS WHO ARE OR HAVE BEEN ENROLLED IN A CHEMICAL DEPENDENCY/SUBSTANCE ABUSE PROGRAM, SOME INFORMATION MAY BE OMITTED. This clinical summary was aggregated from multiple sources. Caution should be exercised in using it in the provision of clinical care. This summary normalizes information from multiple sources, and as a consequence, information in this document may materially changethe coding, format and clinical context of patient data. In addition, data may be omittedin some cases. CLINICAL DECISIONS SHOULD BE BASED ON THE PRIMARY CLINICAL RECORDS. [facility] provides no warranty or guarantee of the accuracy or completeness of information in this document. UNRECOGNIZED CONTENT PROVIDED BELOW FOR UNRECOGNIZED SECTION INFORMATION SOURCE DATE CREATED AUTHOR AUTHOR'S ORGANIZATIO N 12/14/2018 [facility] DATE CREATED AUTHOR AUTHOR'S ORGANIZATIO N 07/13/2019 [facility]
== END ==
PROVIDERS: PCP Family Medicine; Referring Provider Family Medicine; Visit Provider Family Medicine
DX: R04.2 Hemoptysis (principal)
CPT/HCPCS: 71046

== ENCOUNTER 2019-07-26 21:11 | Emergency (ER) | payer MEDICAID, SELFPAY ==
[2019-04-23 14:41] VITALS: BMI 35.2
[2019-07-26 21:12] VITALS: BP 152/101; PULSE 67; RESP 18; TEMP 36.4; O2SAT 97; BMI 36.1
--- NOTE | 2019-07-26 22:38 | US_ITS ---
STUDY: VENOUS DOPPLER ULTRASOUND - LEFT LOWER EXTREMITY REASON FOR EXAM: Female, 54 years old. LT KNEE SWELLING AND PAIN S/P KNEE SX TECHNIQUE: Ultrasound evaluation of the deep vein system to include rinaldi-scale imaging and compression was performed. Rinaldi-scale imaging and Doppler sonographic evaluation, including duplex spectral analysis and qualitative color flow sonography, was performed. COMPARISON: None. FINDINGS: Bilateral Common Femoral Vein: Normal compression, spontaneity and augmentation. Normal color Doppler. Common Femoral Vein/Greater Saphenous Junction: Normal compression. Deep Femoral Vein: Normal compression. Femoral Proximal: Normal compression. Femoral Middle: Normal compression, spontaneity and augmentation. Normal color Doppler. Femoral Distal: Normal compression. Popliteal Vein: Normal compression, spontaneity and augmentation. Normal color Doppler. Posterior Tibial Vein: Normal compression. Peroneal Vein: Normal compression. Popliteal fossa with an anechoic 2.5 x 3.2 x 1.1 cm cyst. US/Venous Duplex Imag/Limited/Uni IMPRESSION: No deep venous thrombosis on submitted images. Small popliteal cyst in the popliteal fossa. Electronically Signed: Winter Zamudio MD at 0:11 EDT , Service support ,
[2019-07-26 23:07] LABS: Absolute Lymphocyte Count 1.92 X10^3/uL (0.83-4.51); Absolute Neutrophil Count 3.4 X10^3/uL (2.0-7.7); Basophil# 0.03 X10^3/uL; Basophil% 0.5 % (0-1); Eosinophil# 0.14 X10^3/uL; Eosinophils% 2.2 % (0-5); Hematocrit 39.4 % (37-47); Hemoglobin 12.5 g/dL (12.0-15.0); Lymphocyte # 1.92 X10^3/ul (4.0); Lymphocyte % 29.9 % (19-41); Mean Corp Hgb Conc 31.7 g/dL (32-36); Mean Corpuscular Volume 97.8 fL (81-99); Mean Platelet Vol. 10.2 fl (6.2-12.0); Monocyte# 0.92 X10^3/uL; Monocyte% 14.3 % (0-10); NRBC Flagged by Analyzer 0 % (0-5); Neutrophil # 3.41 X10^3/uL (2.7-7.7); Neutrophil % 52.9 % (47-70); Platelet Count 255 K/mm3 (150-450); RBC Distribution Width CV 12.6 % (11.6-14.6); RBC Distribution Width SD 45.1 fl (35.1-43.9); Red Blood Count 4.03 M/mm3 (4.2-5.4); White Blood Count 6.4 K/mm3 (4.4-11.0)
[2019-07-26 23:15] LABS: Erythrocyte Sedimentation Rate 18 mm/hr (0-30)
[2019-07-26 23:26] LABS: Anion Gap 7 (5-15); BUN 25 mg/dL (7-18); BUN/Creat Ratio 37.6 RATIO (10-20); CRP < 2.90 mg/L (0.0-3.0); Calcium,Total 8.9 mg/dL (8.5-10.1); Chloride 104 mmol/L (98-107); Creatinine, Serum 0.66 mg/dL (0.55-1.02); EST Glomerular Filtration Rate 99 mL/min (>60); Est Glom Filt Rate - Afr Amer 120 mL/min (>60); Estimated Creatinine Clearance 93.34 ml/min; Glucose 98 mg/dL (74-106); Potassium 3.8 mmol/L (3.5-5.1); Sodium Level 139 mmol/L (136-145)
--- NOTE | 2019-07-26 23:40 | RAD_ITS ---
STUDY: X-RAY - LEFT KNEE REASON FOR EXAM: Female, 54 years old. Pain and swelling status post total knee replacement TECHNIQUE: 4 view(s) of the knee. COMPARISON: 04/23/2019 FINDINGS: Total knee arthroplasty in anatomic alignment with intact hardware and normal osseous interface. Normal visualized distal femur. Normal visualized proximal tibia and fibula. Normal proximal tibiofibular articulation. There is a soft tissue prominence in the suprapatellar region suggesting a small volume joint effusion. There is obesity. No overt soft tissue swelling detected. RAD/Knee 4 or More Views IMPRESSION: Total knee arthroplasty in anatomic alignment. Small effusion. Electronically Signed: Winter Zamudio MD at 0:13 EDT , Service support ,
--- NOTE | 2019-07-27 00:48 | ED.VIS.LOWEX ---
History of Present Illness Chief Complaint: Lower Extremity Injury Informant: Patient Onset: Yesterday Context: Gradual Onset Timing: Continuous Quality of Pain: Aching Location: left knee Current Severity: Moderate Maximum Severity: Moderate Worsened by: walking, bending knee Relieved by: remaining still Associated Symptoms: Negative for: Parasthesia, Weakness, Loss of Funtion Narrative: Patient had a total knee arthroplasty on April 22 of this year, over 2 months ago. She states recently she has been doing very well, getting around on it well, it healed nicely, Dr. Dutta was her surgeon. Yesterday she started having some pain in the left knee, anteriorly diffusely and in the popliteal space, it has gradually worsened and she feels like it is a little swollen. She does not have calf pain but thinks she noticed some bruising in her calf that was not there before. She denies any numbness or weakness, denies any fevers, bleeding, denies any injury. - Past Medical History (1) Arthritis Status: Chronic Past Medical History - Allergies and Home Meds Allergies/Adverse Reactions: Allergies No Known Allergies Allergy (Verified 07/26/19 21:15) Primary Care Physician: Bi Higgins DO [Primary Care Provider] - Surgical History: total knee arthroplasty Lives: Spouse/ Significant Other Smoking Status: Former smoker Review of Systems General: Denies: Chills, Fever, Sweats Eyes: Denies: Visual changes - bilaterally, Diplopia ENT: Denies: Rhinorrhea, Sore throat Cardiovascular: Denies: Chest pain, Palpitations Respiratory: Denies: Dyspnea, Cough, Dyspnea on exertion Gastrointestinal: Denies: Abdominal pain, Nausea, Vomiting, Diarrhea, Melena, Hematochezia Genitourinary: Denies: Dysuria, Hematuria, Frequency Musculoskeletal: Reports: Extremity Pain. Denies: Back pain Skin: Denies: Rash, Wounds Neurological: Denies: Headache, Weakness, Numbness Physical Exam Vital Signs/Narrative: Vital Signs Temp Pulse Resp BP Pulse Ox 07/26/19 21:12 97.6 F L 67 18 152/101 H 97 Inital Vital Signs reviewed: Yes - Extremity Exam Left Knee: Limited ROM - At extreme of flexion limited only. Otherwise excellent range of motion, full extension capable with extensor mechanism intact. All ligaments stable, she has some discomfort with stressing the ACL, but there is no laxity. There does appear to be a mild effusion. Anteriorly, the knee is excessively warm compared with the surrounding parts of the extremity. There does not appear to be any cellulitis. The midline surgical scar appears to be well-healed without signs of dehiscence or irregularity. No abscess. Tender in the popliteal fossa without any focal palpable abnormality. Left Tib Fib: - - Varicose veins evident and calf/lower leg, no calf tenderness, negative Homans. No palpable cords throughout left lower extremity. General: Well nourished, Well developed, - - nad Head: Normocephalic, Atraumatic Eyes: Perrl, EOMI ENT: No Trauma, Moist Mucous Membranes Neck: Nontender, Full ROM Respiratory: No distress Skin: Normal color, No rash, No Trauma Neurological: Alert, Oriented x3, Cranial nerves II-XII grossly intact, Normal Strength, Normal Sensation Psychological: Normal affect, Normal Mood Diagnostic/Tx/Re-eval Impressions Venous Duplex 07/26/19 22:38 IMPRESSION: No deep venous thrombosis on submitted images. Small popliteal cyst in the popliteal fossa. Electronically Signed: Winter Zamudio MD at 0:11 EDT , Service support , Knee X-Ray 07/26/19 23:40 IMPRESSION: Total knee arthroplasty in anatomic alignment. Small effusion. Electronically Signed: Winter Zamudio MD at 0:13 EDT , Service support , 07/26/19 23:40 Knee 4 or More Views [RAD] Stat Laboratory Results 07/26/19 07/26/19 23:00 23:00 WBC 6.4 RBC 4.03 L Hgb 12.5 Hct 39.4 MCV 97.8 MCH 31.0 MCHC 31.7 L RDW Std Deviation 45.1 H RDW Coeff of Noel 12.6 Plt Count 255 MPV 10.2 Immature Gran % (Auto) 0.200 Neut % (Auto) 52.9 Lymph % (Auto) 29.9 Cascade % (Auto) 14.3 H Eos % (Auto) 2.2 Baso % (Auto) 0.5 Absolute Neuts (auto) 3.4 Absolute Lymphs (auto) 1.92 Nucleated RBC % 0 ESR 18 Sodium 139 Potassium 3.8 Chloride 104 Carbon Dioxide 28.0 Anion Gap 7 BUN 25 H Creatinine 0.66 Estim Creat Clear Calc 93.34 Est GFR (MDRD) Af Amer 120 Est GFR (MDRD) Non-Af 99 BUN/Creatinine Ratio 37.6 H Glucose 98 Calcium 8.9 C-React Prot Ext Range < 2.90 - Medical Decision Making As above, tests are extremely reassuring including a negative ESR and negative CRP. I performed an ultrasound of the left lower extremity venous system, negative for DVT, it showed a cystic structure in the popliteal fossa. I discussed all this with the orthopedic on-call, Dr. Davis, he agrees with discharging the patient to follow-up closely as an outpatient with Dr. Dutta, and is okay with giving the patient an Adelso wrap and analgesics in the meantime. Other measures of supportive care are recommended, the patient was reassured and advised to follow-up. At this time, this work-up is consistent with the absence of acute infection in her total knee. ED Disposition - Plan for ED Patient: Disposition: Home or Assisted Living Diagnosis: Left knee pain, History of total knee arthroplasty Instructions: ED Knee Pain [facility] Prescriptions: traMADol [Ultram] 50 mg PO Q4H PRN PRN 3 Days #16 tab PRN Reason: Pain Prescription Printed Referrals: Edgar Jefferson DO [STAFF PHYSICIAN] - As soon as possible (call today for appt per Dr. Davis)
[2019-07-27 01:00] VITALS: BP 148/60; PULSE 64; RESP 16; O2SAT 96
--- OUTSIDE RECORDS SUMMARY | 2019-12-02 12:09 | XMS RPT_ITS | CCD ---
:1965 External Reference #:[id number] Author Organization [facility] Care Team Providers Name Role Phone Unavailable Unavailable Unavailable Results Result Name Value Range Unit Interpretation Flag Date Location ct chest w/ contrast on 2019-07-11 CT Chest w/ Patient Name: TONYA BHATTI Normal 07-11-2019 [facility] Contrast System (0 0000) CT Exam Date/Time 07/11/2019 09:10:[address] Chest w/ Contrast Ordering Physician DO SAMUEL EUGENE F. Accession Number [id number] CPT4 Codes 01824 (), Q9967 (CT ISOVUE 370MG/[id number]) Reason For Exam hemoptysis, group home smoker Report CT chest with contrast HISTORY: [...] 1:19 progress on 2018-11 PROGRESS HNO ID: [id number] Normal 12-12-2018 [facility] Author: Lori Wong [facility] ([id number]) Service: ? Author Type: ? Type: Progress [...] 12, 2018 11:38 AM PROGRESS HNO ID: [id number] Normal 12-12-2018 [facility] Author: Deyanira Rock [place] ([id number]) Service: ? Author Type: Erp Business Analyst Type: Progress Notes Filed: 12/12/2018 11:38 AM [...] RDMS RVT December 12, 2018 11:38 AM [facility] CodeHS breast [employer] rt on 2018-12-12 [facility] US BREAST * * *Final Report* * * Normal [facility] RT DATE OF EXAM: Dec 12 2018 11:33AM [place] ([id number]) WRU 0594 - [facility] BREAST [facility] RT / PROCEDURE REASON: Breast lump on right side at 7 o'clock pos ition * * * * Physician Interpretation * * * * #[id number] - [facility] DIAGNOSTIC ZAKI #[id number] - [facility] BREAST [facility] RT BILATERAL DIGITAL DIAGNOSTIC MAMMOGRAM [...] made to exams dated: 11/09/2017 mammogram - [facility] and 10/13/2016 mammogram - [facility]. The tissue of both breasts is predominantly fatty. No significant masses, calcifications, or other findings are seen in either breast. IMPRESSION: INCOMPLETE: NEEDS ADDITIONAL IMAGING EVALUATION There is no abnormality seen in the right breast to correspo nd with the palpable abnormality, however, ultrasound is recommended. LIMITED ULTRASOUND OF RIGHT BREAST: 12/12/2018 RESULT: Comparison is made to exams dated: 11/09/2017 mammogram - [facility] and 10/13/2016 mammogram - [facility] nter. Color flow and real-time ultrasound of [...] Family Medicine, and Medical/Surgical Oncology, the [facility] has carefully reviewed the data and reached [...] providers when to sto p screening mammograms. Tassel Making Machine Operator(s): RT Vicki(R)(M), [facility]; Deyanira Rock [facility] letter sent: Return to Annual OVERALL STUDY BIRADS: 2 Benign finding Factory Clerk: Mariposa Transcribe Date/Time: Dec 12 2018 10:45A Dictated by : JORJE BHAKTA MD This examination was interpreted and the report reviewed and electronically signed by: JORJE BHAKTA MD on Dec 12 2018 11:39AM EST [id number] [facility] diagnostic zaki on 2018-12-12 [facility] DIAGNOSTIC ZAKI * * *Final Report* * * Normal 12-12-2018 [facility] DATE OF EXAM: Dec 12 2018 10:44AM [place] WRW 0620 - [facility] DIAGNOSTIC ZAKI / ([id number]) PROCEDURE REASON: Breast lump on right side at 7 o'clock pos ition * * * * Physician Interpretation * * * * RESULT: #[id number] - [facility] DIAGNOSTIC ZAKI #[id number] - [facility] US BREAST LTD RT BILATERAL DIGITAL DIAGNOSTIC [...] made to exams dated: 11/09/2017 mammogram - [facility] and 10/13/2016 mammogram - [facility] nter. The tissue of both breasts is predominantly fatty. No significant masses, calcifications, or other findings are seen in either breast. IMPRESSION: INCOMPLETE: NEEDS ADDITIONAL IMAGING EVALUATION There is no abnormality seen in the right breast to correspo nd with the palpable abnormality, however, ultrasound is recommended. LIMITED ULTRASOUND OF RIGHT BREAST: 12/12/2018 RESULT: Comparison is made to exams dated: 11/09/2017 mammogram - [facility] and 10/13/2016 mammogram - [facility] nter. Color flow and real-time ultrasound of [...] Health, Family Medicine, and Medical/Surgical Oncology, [facility] has carefully reviewed the data and reached [...] providers when to sto p screening mammograms. Tassel Making Machine Operator(s): Lori Wong, RT(R)(M), [facility]; Deyanira Rock, [facility] letter sent: Return to Annual OVERALL STUDY BIRADS: 2 Benign finding Factory Clerk: Mariposa Transcribe Date/Time: Dec 12 2018 10:45A Dictated by: JORJE BHAKTA MD This examination was interpreted and the report reviewed and electronically signed by: JORJE BHAKTA MD on Dec 12 2018 11:39AM EST [id number] cnco on 2018-12-12 CNCO HNO ID: [id number] Normal 12-12-2018 [facility] Author: Mammography Coordinator ([id number]) Service: ? Author Type: Physician Type: Letter Filed: 12/13/2018 11:32 PM Note Text: December 12, 2018 PID: [id number] Tonya Gutiérrez [address] [place] [address] Dear Ms. Gutiérrez, We are pleased to [...] report will be kept on file at [facility] as part of your permanent medical record and are available f or your continuing care. Thank you for allowing us to help in meeting your health car e needs. Sincerely, Dr. Bhakta Interpreting Radiologist [facility] (Return to Annual Mammogram schedule) CNCO HNO ID: [id number] Normal 12-12-2018 [facility] Author: Mammography Coordinator ([id number]) Service: ? Author Type: Physician Type: Letter Filed: 12/13/2018 11:32 PM Note Text: December 12, 2018 PID: [id number] Tonya Gutiérrez [address] [place] [address] Dear Ms. Gutiérrez, We are pleased to [...] report will be kept on file at [facility] as part of your permanent medical record and are available f or your continuing care. Thank you for allowing us to help in meeting your health car e needs. Sincerely, Dr. Bhakta Interpreting Radiologist [facility] (Return to Annual Mammogram schedule) progress on 2018-11 PROGRESS HNO ID: [id number] Normal 11-30-2018 [facility] Author: Rachel Corona ([id number]) Service: ? Author Type: Physician Type: Progress [...] genitalia normal, normal Bartholin's glands , urethra, [place]'s glands, no vulvar lesions, no cervical lesions, [...] 2018-11-30 CNOV Office Visit (WOOB) Normal 11-30-2018 [place] TONYA Rai ([id number]) 1965 F [facility] Date Time Provider Department ([id number]) 11/30/18 9:00 AM RACHEL MARIANO During your [...] genitalia normal, westley l Bartholin's glands, urethra, [place]'s glands, no vulvar lesions, no cervical l [...] for gynecological examination with abnormal finding [Z01.411] Order(s):[facility] SCREENING [3906695] Order #: [id number] FUTURE PAP FLUID CERVICAL SCREENING [4845032] Order #: [id number] [facility] DIAGNOSTIC BILAT [6001409] Order #: [id number] FUTURE BREAST LTD RT [0520693] Order #: [id number] FUTURE CONSULT TO URO GYNECOLOGY [6386884] Order #: [id number]: 1 Prescriptions as of 11/30/2018 Sig: CELECOXIB [...] with irregular cycle [N92.1] INVALID FOR* Other group home (current) drug therapy [Z79.899]INVALID FOR* Change in bowel habits [R19.4] INVALID FOR* Mild asthma [J45.909] INVALID FOR* Disposition: Return in 1 year (on 12/01/2019) for Annual Monico mayberry Follow-up and Disposition History Recorded Encounter Status:Closed by RACHEL MARIANO MD on 11/30/18 surgical pathology on 2018-10-26 SURGICAL Specimen originated from [facility] Normal 10-26-2018 [place] PATHOLOGY Specimen #: [id number] Clinic Submitting Physician: AROLDO BLOUNT [place] ([id number]) FINAL DIAGNOSIS 1. Colon, biopsy (A) - Colonic mucosa with no diagnostic abn ormalities. 2. Colon, rectal polyp, biopsy (B) - Hyperplastic polyp. - No adenomatous epithelium identified. [facility] [place] 10/27/2018 Edgar Fajardo M.D., Ph.D. (Electronic Signature) [...] in one cassette. Gross examination performed at [facility], [address] [place] [address] 10/27/2018 1:25:18 AM Date of Report: 10/28/2018 Date of Procedure: 10/26/2018 Date of Receipt: 10/26/2018 Submitted by: AROLDO BLOUNT Location: [facility] Diagnostic interpretation performed at [facility], [address] [facility] [address]. [place] Number: [id number] obsolete on 2018-10 OBSOLETE Procedure (ASCNOR) Normal 10-26-2018 [place] [facility] JAREDTONYA FARRIS ([id number]) 1965 F [facility] Date Time Provider Department ([id number]) 10/26/18 8:30 AM AROLDO BLOUNT During your [...] 26, 2018 TIME: 11:00 AM PAGER/CONTACT #: [phone] Referring Provider: AROLDO BLOUNT [[id number]] Allergies As of Date: 10/26/2018 Noted Allergy Reaction SULFAMETHOXAZOLE-TRIMETHOPRIM 07/20/2005 8 - GI Upset 14 - Other: See Comments Date Reviewed: 10/26/2018 Reviewed by: Laura Rob RN - Fully Assessed Reason for Visit: Outpatient Colonoscopy [482] Cmt: change in bowel habits Visit Diagnosis:Change in bowel habits [R19.4] Order(s):COLONOSCOPY - DIAGNOSTIC [8926227] Order #: [id number]. #:[id number] SURGICAL PATHOLOGY [6791540] Order #: [id number] Prescriptions as of 10/26/2018 Sig: CELECOXIB 200 [...] with irregular cycle [N92.1] INVALID FOR* Other group home (current) drug therapy [Z79.899]INVALID FOR* Change in bowel habits [R19.4] INVALID FOR* Mild asthma [J45.909] INVALID FOR* Other instructions from your clinician: Discharge instructions given and patient voices sanjeev g. All questions answered. Sharee Topete RN Visit Notes: >> Sharee Topete RN [facility] Oct 26, 2018 7:48 AM Status: [...] RN >> Sharee Topete RN [facility] Oct 26, 2018 9:02 AM Status: [...] AMBULATORY SURGERY >> Rebeca Smith [facility] Oct 26, 2018 11:00 AM Status: [...] 26, 2018 TIME: 11:00 AM PAGER/CONTACT #: [phone] Disposition: Return for As scheduled. Follow-up and Disposition History Recorded Encounter Status:Closed by AROLDO BLOUNT on 10/26/18 history physical on 2018-10-26 HISTORY PHYSICAL HNO ID: [id number] Normal 10-15 [facility] Author: Aroldo Corona ([id number]) Service: ? Author Type: Physician Type: HANDP [...] MD progress on 2018-09 PROGRESS HNO ID: [id number] Normal 10-09-2018 [facility] Author: Aroldo Corona ([id number]) Service: ? Author Type: Physician Type: Progress [...] DIAGNOSTIC - IV DISCONTINUE - INSERT IV ([place]) - INSERT IV ([place]) Return in about 2 months (around 12/09/2018). I have confirmed and edited as necessary, the PFSH and ROSY romero btained by others. Aroldo Blount MD DATE: 10/09/18 TIME: 2:40 PM cnov on 2018-10-09 CNOV Office Visit (GSTNOR) Normal 10-10-19 [place] Pradeep TONYA GUTIÉRREZ ([id number]) 1965 F [facility] Time Provider Department ([id number]) 10/09/18 3:00 PM AROLDO BLOUNT During your [...] DIAGNOSTIC - IV DISCONTINUE - INSERT IV (DE,[place]) - INSERT IV (DE,NM) Return in about 2 months (around 12/09/2018). I have confirmed and edited as necessary , the PFSH and ROS obtained by others. Aroldo Blount MD DATE: 10/09/18 TIME: 2:40 PM Aroldo Blount MD 10/09/2018 2:42 PM Signed How to Prepare for Your [place] noscopy Using Golytely, Nulytely, Trilyte or Colyte [...] the day before your colonosc opy. Designated Health Assessment And Treatment Teacher on the Day of Your Exam A responsible family member or friend MUST come with y ou to your colonoscopy and REMAIN in the endoscopy area until y ou are discharged. You are NOT ALLOWED to drive, take a taxi or bus, or leave the Endoscopy C enter ALONE. If you do not have a responsible coal tram driver (family member or friend ) with [...] the prescription bowel preparation solution at your [facility] or drugstore pharmacy. Three (3) Days [...] carbonated beverages such as dario brandon or lemon-[place] soda; Gatorade or other sports drinks (not [...] of your colonoscopy. Referring Provider: MARCUS ROSE [[id number]] Allergies As of Date: 10/09/2018 Noted Allergy Reaction SULFAMETHOXAZOLE-TRIMETHOPRIM 07/20/2005 8 - GI Upset 14 - Other: See Comments Date Reviewed: 10/09/2018 Reviewed by: Marguerite Barton LPN - Fully Assessed Reason for Visit: loose stools [Other] Cmt: CT showed nonobstructing left re nal calcification Visit Diagnoses:Change in bowel habits [R19.4] Mild intermittent asthma without complication [J45.20] Order(s):INSERT IV ([place], [place]) [9221724] Order #: [id number]: 1 FUTURE IV DISCONTINUE [4922271] Order #: [id number]: 1 FUTURE INSERT IV ([place], [place]) [4230157] Order #: [id number]: 1 COLONOSCOPY - DIAGNOSTIC [7057705] Order #: [id number] FUTUR E predniSONE (DELTASONE) 10 mg tabletTake [...] with irregular cycle [N92.1] INVALID FOR* Other director long term care (current) drug therapy [Z79.899]INVALID [...] the day before your colonosc opy. Designated Health Assessment And Treatment Teacher on the Day of Your Exam A responsible family member or friend MUST come with you to your colonoscopy and REMAIN in the endoscopy area until you are d ischarged. You are NOT ALLOWED to drive, take a taxi or bus, or leave [facility] ALONE. If you do not have a responsible coal tram driver (famil y member or friend) with [...] the prescription bowel preparation solution at your [facility] or drugstore pharmacy. Three (3) Days [...] beverages such as dario brandon o r lemon-[place] soda; Gatorade or other sports drinks (not [...] on 2018-10-09 CNCO Letter Text Normal 10-09-2018 [facility] ([id number]) hemogram w/ autodiff on 2018-08-16 Abs Baso Cnt 0.0 0.0-0.2 10*3/uL Normal 08-16-2018 [facility] ([id number]) Comment: Performed By: #### HEMDF ### # [facility] [address] [place] [address] Abs Neutrophile Cnt 4.3 1.8-7.0 10*3/uL Normal 08-16-2018 [facility] (75310) Comment: Performed By: #### HEMDF ### # [facility] [address] [place] [address] Basophils/100 WBC (Bld) 0.4 0.0-2.0 % Normal 2018 [facility] (63924) Comment: Performed By: #### HEMDF ### # [facility] [address] [place] [address] Eosinophils (Bld) [#/Vol] 0.1 0.0-0.5 10*3/uL Normal [facility] (22587) Comment: Performed By: #### HEMDF ### # [facility] [address] [place] [address] Eosinophils/100 WBC (Bld) 1.3 1.0-6.0 % Normal [facility] (35562) Comment: Performed By: #### HEMDF ### # [place] [address] [place] [address] Erythrocyte distribution 13.1 11.5-14.5 % Normal 08-16 [facility] width (RBC) [Ratio] (69935) Comment: Performed By: #### HEMDF ### # [facility] [address] [place] [address] Granulocytes/100 WBC (Bld) 62.0 40.0-80.0 % Normal [facility] (76630) Comment: Performed By: #### HEMDF ### # [facility] [address] [place] [address] Hematocrit (Bld) [Volume 39.8 35.0-47.0 % Normal 08-16 [facility] fraction] (36478) Comment: Performed By: #### HEMDF ### # [facility] [address] [place] [address] Hemoglobin (Bld) 13.4 11.7-16.0 g/dL Normal 08-16-2018 [facility] [Mass/Vol] (58270) Comment: Performed By: #### HEMDF ### # [facility] [address] [place] [address] Lymphocytes (Bld) [#/Vol] 1.9 1.0-4.3 10*3/uL Normal [facility] (94621) Comment: Performed By: #### HEMDF ### # [facility] [address] [place] [address] Lymphocytes/100 WBC (Bld) 27.2 20.0-40.0 % Normal [facility] (59960) Comment: Performed By: #### HEMDF ### # [facility] [address] [place] [address] MCH (RBC) [Entitic mass] 31.8 26.0-34.0 pg Normal 08-16 [facility] (07600) Comment: Performed By: #### HEMDF ### # [facility] [address] [place] [address] MCHC (RBC) [Mass/Vol] 33.7 32.0-36.0 % Normal 08-17-19 19 [facility] (12213) Comment: Performed By: #### HEMDF ### # [facility] [address] [place] [address] MCV (RBC) [Entitic vol] 94.3 79.0-98.0 fL Normal 2018 [facility] (78395) Comment: Performed By: #### HEMDF ### # [facility] [address] [place] [address] Monocytes (Bld) [#/Vol] 0.6 0.0-0.8 10*3/uL Normal 2018 [facility] (83521) Comment: Performed By: #### HEMDF ### # [facility] [address] [place] [address] Monocytes/100 WBC (Bld) 9.1 2.0-10.0 % Normal 2018 [facility] (70639) Comment: Performed By: #### HEMDF ### # [facility] [address] [place] [address] Platelet mean volume (Bld) 8.4 7.4-10.4 fL Normal [facility] [Entitic vol] (74695 ) Comment: Performed By: #### HEMDF ### # [facility] [address] [place] [address] Platelets (Bld) [#/Vol] 265 140-440 10*3/uL Normal 2018 [facility] (58888) Comment: Performed By: #### HEMDF ### # [facility] [address] [place] [address] RBC (Bld) [#/Vol] 4.22 3.80-5.20 10*6/uL Normal 08-16-2018 [facility] (44041) Comment: Performed By: #### HEMDF ### # [facility] [address] [place] [address] WBC (Bld) [#/Vol] 7.0 3.6-10.7 10*3/uL Normal 08-16-2018 [facility] (27179) Comment: Performed By: #### HEMDF ### # [facility] [address] [place] [address] ct abdomen/pelvis w/ contrast on 2018-08-16 CT Abdomen/Pelvis Patient Name: TONYA GUTIÉRREZ 08-16-2018 [facility] w/ Contrast [facility] Sy stem ([id number]) CT Exam Date/Time 08/16/2018 17:09:[address] Abdomen/Pelvis w/ IV Contrast (IV Onl Ordering Physician DO ROSE PAUL E. Accession Number [id number] CPT4 Codes 17552 (CT Abdomen/Pelvis w/ IV Contrast (IV Onl), Q9967 (CT ISOVUE 370MG/[id number]) Reason For Exam . Report CT ABDOMEN [...] other acute findings. Report Dictated on Workstation: [employer]2 Final Dictating Physician: MD ED WENDELL Signed Date and Time: 08/16/2018 5:22 [...] BE BASED ON THE PRIMARY CLINICAL RECORDS. [facility] provides no warranty or guarantee of the accuracy or completeness of information in this document. UNRECOGNIZED CONTENT PROVIDED BELOW FOR UNRECOGNIZED SECTION INFORMATION SOURCE DATE CREATED AUTHOR AUTHOR'S ORGANIZATIO N 12/14/2018 [facility] DATE CREATED AUTHOR AUTHOR'S ORGANIZATIO N 07/13/2019 [facility]
--- OUTSIDE RECORDS SUMMARY | 2019-12-02 12:09 | XMS RPT_ITS | CCD ---
:1965 External Reference #:[id number] Author Organization [facility] Care Team Providers Name Role Phone Unavailable Unavailable Unavailable Results Result Name Value Range Unit Interpretation Flag Date Location ct chest w/ contrast on 2019-07-11 CT Chest w/ Patient Name: TONYA BHATTI Normal 07-11-2019 [facility] [employer] Contrast System (0 0000) CT Exam Date/Time 07/11/2019 09:10:[address] Chest w/ Contrast Ordering Physician DO SAMUEL EUGENE F. Accession Number [id number] CPT4 Codes 89484 (), Q9967 (CT ISOVUE 370MG/[id number]) Reason For Exam hemoptysis, senior care smoker Report CT chest with contrast HISTORY: [...] 1:19 progress on 2018-11 PROGRESS HNO ID: [id number] Normal 12-12-2018 [facility] Author: Lori Wong [facility] ([id number]) Service: ? Author Type: ? Type: Progress [...] 12, 2018 11:38 AM PROGRESS HNO ID: [id number] Normal 12-12-2018 [facility] Author: Deyanira Rock [place] ([id number]) Service: ? Author Type: Pharmacy Innovation Assistant Type: Progress Notes Filed: 12/12/2018 11:38 AM [...] RDMS RVT December 12, 2018 11:38 AM [facility] Bgifty breast Rosalind rt on 2018-12-12 [facility] US BREAST * * *Final Report* * * Normal [facility] RT DATE OF EXAM: Dec 12 2018 11:33AM [place] ([id number]) WRU 0594 - [facility] BREAST [facility] RT / PROCEDURE REASON: Breast lump on right side at 7 o'clock pos ition * * * * Physician Interpretation * * * * #[id number] - [facility] DIAGNOSTIC ZAKI #[id number] - [facility] BREAST [facility] RT BILATERAL DIGITAL DIAGNOSTIC MAMMOGRAM [...] dated: 11/09/2017 mammogram - [facility] and 10/13/2016 mammogram - [facility]. The tissue of both breasts is predominantly fatty. No significant masses, calcifications, or other findings are seen in either breast. IMPRESSION: INCOMPLETE: NEEDS ADDITIONAL IMAGING EVALUATION There is no abnormality seen in the right breast to correspo nd with the palpable abnormality, however, ultrasound is recommended. LIMITED ULTRASOUND OF RIGHT BREAST: 12/12/2018 RESULT: Comparison is made to exams dated: 11/09/2017 mammogram - [facility] and 10/13/2016 mammogram - [facility] nter. Color flow and real-time ultrasound of [...] Family Medicine, and Medical/Surgical Oncology, the [facility] has carefully reviewed the data and [...] providers when to sto p screening mammograms. Fishing Floats Assembler(s): RT Vicki(R)(M), [facility]; Deyanira Rock [facility] letter sent: Return to Annual OVERALL STUDY BIRADS: 2 Benign finding Transportation Agent: Mariposa Transcribe Date/Time: Dec 12 2018 10:45A Dictated by : JORJE BHAKTA MD This examination was interpreted and the report reviewed and electronically signed by: JORJE BHAKTA MD on Dec 12 2018 11:39AM EST [id number] [facility] diagnostic zaki on 2018-12-12 [facility] DIAGNOSTIC ZAKI * * *Final Report* * * Normal 12-12-2018 [facility] DATE OF EXAM: Dec 12 2018 10:44AM [place] WRW 0620 - [facility] DIAGNOSTIC ZAKI / (70068) PROCEDURE REASON: Breast lump on right side at 7 o'clock pos ition * * * * Physician Interpretation * * * * RESULT: #[id number] - [facility] DIAGNOSTIC ZAKI #[id number] - [facility] US BREAST LTD RT BILATERAL DIGITAL DIAGNOSTIC [...] made to exams dated: 11/09/2017 mammogram - [facility] and 10/13/2016 mammogram - [facility] nter. The tissue of both breasts is predominantly fatty. No significant masses, calcifications, or other findings are seen in either breast. IMPRESSION: INCOMPLETE: NEEDS ADDITIONAL IMAGING EVALUATION There is no abnormality seen in the right breast to correspo nd with the palpable abnormality, however, ultrasound is recommended. LIMITED ULTRASOUND OF RIGHT BREAST: 12/12/2018 RESULT: Comparison is made to exams dated: 11/09/2017 mammogram - [facility] and 10/13/2016 mammogram - [facility] nter. Color flow and real-time ultrasound of [...] Health, Family Medicine, and Medical/[facility]urgical Oncology, [facility] has carefully reviewed the data and [...] providers when to sto p screening mammograms. Fishing Floats Assembler(s): Lori Wong, RT(R)(M), [facility]; Deyanira Rock, [facility] letter sent: Return to Annual OVERALL STUDY BIRADS: 2 Benign finding Transportation Agent: Mariposa Transcribe Date/Time: Dec 12 2018 10:45A Dictated by: JORJE BHAKTA MD This examination was interpreted and the report reviewed and electronically signed by: JORJE BHAKTA MD on Dec 12 2018 11:39AM EST [id number] cnco on 2018-12-12 [facility] HNO ID: [id number] Normal 12-12-2018 [facility] Author: Mammography Coordinator ([id number]) Service: ? Author Type: Physician Type: Letter Filed: 12/13/2018 11:32 PM Note Text: December 12, 2018 PID: [id number] Tonya Gutiérrez [address] [place] [address] Dear Ms. Gutiérrez, We are pleased to [...] report will be kept on file at [facility] as part of your permanent medical record and are available f or your continuing care. Thank you for allowing us to help in meeting your health car e needs. Sincerely, Dr. Bhakta Interpreting Radiologist [facility] (Return to Annual Mammogram schedule) CNCO HNO ID: [id number] Normal 12-12-2018 [facility] Author: Mammography Coordinator ([id number]) Service: ? Author Type: Physician Type: Letter Filed: 12/13/2018 11:32 PM Note Text: December 12, 2018 PID: [id number] Tonya Gutiérrez [address] [place] [address] Dear Ms. Gutiérrez, We are pleased to [...] report will be kept on file at [facility] as part of your permanent medical record and are available f or your continuing care. Thank you for allowing us to help in meeting your health car e needs. Sincerely, Dr. Bhakta Interpreting Radiologist [facility] (Return to Annual Mammogram schedule) progress on 2018-11 PROGRESS HNO ID: [id number] Normal 11-30-2018 [facility] Author: Rachel Corona ([id number]) Service: ? Author Type: Physician Type: Progress [...] genitalia normal, normal Bartholin's glands , urethra, [place]'s glands, no vulvar lesions, no cervical lesions, [...] 2018-11-30 CNOV Office Visit (WOOB) Normal 11-30-2018 [place] TONYA Rai ([id number]) 1965 F [facility] Date Time Provider Department ([id number]) 11/30/18 9:00 AM RACHEL MARIANO During your [...] genitalia normal, westley l Bartholin's glands, urethra, [place]'s glands, no vulvar lesions, no cervical l [...] for gynecological examination with abnormal finding [Z01.411] Order(s):[facility] SCREENING [4723701] Order #: [id number] FUTURE PAP FLUID CERVICAL SCREENING [4072982] Order #: [id number] [facility] DIAGNOSTIC BILAT [4741492] Order #: [id number] FUTURE BREAST LTD RT [1780301] Order #: [id number] FUTURE CONSULT TO URO GYNECOLOGY [3993770] Order #: [id number]: 1 Prescriptions as of 11/30/2018 Sig: CELECOXIB [...] with irregular cycle [N92.1] INVALID FOR* Other senior care (current) drug therapy [Z79.899]INVALID FOR* Change in bowel habits [R19.4] INVALID FOR* Mild asthma [J45.909] INVALID FOR* Disposition: Return in 1 year (on 12/01/2019) for Annual Monico mayberry Follow-up and Disposition History Recorded Encounter Status:Closed by RACHEL MARIANO MD on 11/30/18 surgical pathology on 2018-10-26 SURGICAL Specimen originated from [facility] Normal 10-26-2018 [place] PATHOLOGY Specimen #: [id number] Clinic Submitting Physician: AROLDO BLOUNT [place] ([id number]) FINAL DIAGNOSIS 1. Colon, biopsy (A) - Colonic mucosa with no diagnostic abn ormalities. 2. Colon, rectal polyp, biopsy (B) - Hyperplastic polyp. - No adenomatous epithelium identified. [facility] 10/27/2018 Edgar Fajardo M.D., Ph.D. (Electronic Signature) [...] in one cassette. Gross examination performed at [facility], [address] [place] [address] 10/27/2018 1:25:18 AM Date of Report: 10/28/2018 Date of Procedure: 10/26/2018 Date of Receipt: 10/26/2018 Submitted by: AROLDO BLOUNT [facility]: [facility] Diagnostic interpretation performed at [facility], [address] [facility] [address]. [place] Number: [id number] obsolete on 2018-10 OBSOLETE Procedure (ASCNOR) Normal 10-26-2018 [place] [facility] JAREDTONYA FARRIS ([id number]) 1965 F [facility] Date Time Provider Department ([id number]) 10/26/18 8:30 AM AROLDO BLOUNT During your [...] 26, 2018 TIME: 11:00 AM PAGER/CONTACT #: [phone] Referring Provider: AROLDO BLOUNT [[id number]] Allergies As of Date: 10/26/2018 Noted Allergy Reaction SULFAMETHOXAZOLE-TRIMETHOPRIM 07/20/2005 8 - GI Upset 14 - Other: See Comments Date Reviewed: 10/26/2018 Reviewed by: Laura Rob RN - Fully Assessed Reason for Visit: Outpatient Colonoscopy [482] Cmt: change in bowel habits Visit Diagnosis:Change in bowel habits [R19.4] Order(s):COLONOSCOPY - DIAGNOSTIC [7231573] Order #: [id number]. #:[id number] SURGICAL PATHOLOGY [9403227] Order #: [id number] Prescriptions as of 10/26/2018 Sig: CELECOXIB 200 [...] with irregular cycle [N92.1] INVALID FOR* Other senior care (current) drug therapy [Z79.899]INVALID FOR* Change in bowel habits [R19.4] INVALID FOR* Mild asthma [J45.909] INVALID FOR* Other instructions from your clinician: Discharge instructions given and patient voices sanjeev g. All questions answered. Sharee Topete RN Visit Notes: >> Sharee Topete RN [facility] Oct 26, 2018 7:48 AM Status: [...] None PHYSICAL LIMITATIONS AFFECTING LEARNING: None Sharee oTpete RN >> Sharee Topete RN [facility] Oct 26, 2018 9:02 AM Status: [...] In Department: AMBULATORY SURGERY >> Rebeca Smith [facility] Oct 26, 2018 11:00 AM Status: [...] 26, 2018 TIME: 11:00 AM PAGER/CONTACT #: [phone] Disposition: Return for As scheduled. Follow-up and Disposition History Recorded Encounter Status:Closed by AROLDO BLOUNT on 10/26/18 history physical on 2018-10-26 HISTORY PHYSICAL HNO ID: [id number] Normal 10-15 [facility] Author: Aroldo Corona ([id number]) Service: ? Author Type: Physician Type: HANDP [...] MD progress on 2018-09 PROGRESS HNO ID: [id number] Normal 10-09-2018 [facility] Author: Aroldo Coorna ([id number]) Service: ? Author Type: Physician Type: Progress [...] DIAGNOSTIC - IV DISCONTINUE - [place] IV ([place] - INSERT IV [place]) Return in about 2 months (around 12/09/2018). I have confirmed and edited as necessary, the PFSH and ROSY romero btained by others. Aroldo Blount MD DATE: 10/09/18 TIME: 2:40 PM cnov on 2018-10-09 CNOV Office Visit (GSTNOR) Normal 10-10-19 [place] Pradeep TONYA GUTIÉRREZ ([id number]) 1965 F [facility] Time Provider Department ([id number]) 10/09/18 3:00 PM AROLDO BLOUNT During your [...] DIAGNOSTIC - IV DISCONTINUE - INSERT IV ([place] - INSERT IV [place]) Return in about 2 months (around 12/09/2018). I have confirmed and edited as necessary , the PFSH and ROS obtained by others. Aroldo Blount MD DATE: 10/09/18 TIME: 2:40 PM Aroldo Blount MD 10/09/2018 2:42 PM Signed How to Prepare for Your [place] noscopy Using Golytely, Nulytely, Trilyte or Colyte [...] the day before your colonosc opy. Designated Ostomy Nurse on the Day of Your Exam A responsible family member or friend MUST come with y ou to your colonoscopy and REMAIN in the endoscopy area until y ou are discharged. You are NOT ALLOWED to drive, take a taxi or bus, or leave the Endoscopy C enter ALONE. If you do not have a responsible tram driver (family member or friend ) [...] the prescription bowel preparation solution at your [facility] pharmacy or drugstore pharmacy. Three (3) Days [...] carbonated beverages such as dario brandon or lemon-nenana soda; Gatorade or other sports drinks (not [...] of your colonoscopy. Referring Provider: MARCUS ROSE [[id number]] Allergies As of Date: 10/09/2018 Noted Allergy Reaction SULFAMETHOXAZOLE-TRIMETHOPRIM 07/20/2005 8 - GI Upset 14 - Other: See Comments Date Reviewed: 10/09/2018 Reviewed by: Marguerite Barton LPN - Fully Assessed Reason for Visit: loose stools [Other] Cmt: CT showed nonobstructing left re nal calcification Visit Diagnoses:Change in bowel habits [R19.4] Mild intermittent asthma without complication [J45.20] Order(s):INSERT IV ([place], [place]) [1793656] Order #: [id number]: 1 FUTURE IV DISCONTINUE [1091135] Order #: [id number]: 1 FUTURE INSERT IV ([place], [place]) [0617047] Order #: [id number]: 1 COLONOSCOPY - DIAGNOSTIC [5370374] Order #: [id number] FUTUR E predniSONE (DELTASONE) 10 mg tabletTake [...] with irregular cycle [N92.1] INVALID FOR* 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 Designated Ostomy Nurse on the Day of Your Exam A responsible family member or friend MUST come with you to your colonoscopy and REMAIN in the endoscopy area until you are d ischarged. You are NOT ALLOWED to drive, take a taxi or bus, or leave [facility] ALONE. If you do not have a responsible tram driver (famil y member or friend) [...] the prescription bowel preparation solution at your [facility] pharmacy or drugstore pharmacy. Three (3) Days [...] beverages such as dario brandon o r lemon-nenana soda; Gatorade or other sports drinks (not [...] on 2018-10-09 [facility] Letter Text Normal 10-09-2018 [facility] ([id number]) hemogram w/ autodiff on 2018-08-16 Abs Baso Cnt 0.0 0.0-0.2 10*3/uL Normal 08-16-2018 [facility] ([id number]) Comment: Performed By: #### HEMDF ### # [facility] [address] [place] [address] Abs Neutrophile Cnt 4.3 1.8-7.0 10*3/uL Normal 08-16-2018 [facility] (84888) Comment: Performed By: #### HEMDF ### # [facility] [address] [place] [address] Basophils/100 WBC (Bld) 0.4 0.0-2.0 % Normal 2018 [facility] ([id number]) Comment: Performed By: #### HEMDF ### # [facility] [address] [place] [address] Eosinophils (Bld) [#/Vol] 0.1 0.0-0.5 10*3/uL Normal [facility] ([id number]) Comment: Performed By: #### HEMDF ### # [facility] [address] [place] [address] Eosinophils/100 WBC (Bld) 1.3 1.0-6.0 % Normal [facility] ([id number]) Comment: Performed By: #### HEMDF ### # [place] [address] [place] [address] Erythrocyte distribution 13.1 11.5-14.5 % Normal 08-16 [facility] width (RBC) [Ratio] (61993) Comment: Performed By: #### HEMDF ### # [facility] [address] [place] [address] Granulocytes/100 WBC (Bld) 62.0 40.0-80.0 % Normal [facility] ([id number]) Comment: Performed By: #### HEMDF ### # [facility] [address] [place] [address] Hematocrit (Bld) [Volume 39.8 35.0-47.0 % Normal 08-16 [facility] fraction] (75429) Comment: Performed By: #### HEMDF ### # [facility] [address] [place] [address] Hemoglobin (Bld) 13.4 11.7-16.0 g/dL Normal 08-16-2018 [facility] [Mass/Vol] (44763) Comment: Performed By: #### HEMDF ### # [facility] [address] [place] [address] Lymphocytes (Bld) [#/Vol] 1.9 1.0-4.3 10*3/uL Normal [facility] (20845) Comment: Performed By: #### HEMDF ### # [facility] [address] [place] [address] Lymphocytes/100 WBC (Bld) 27.2 20.0-40.0 % Normal [facility] (53684) Comment: Performed By: #### HEMDF ### # [facility] [address] [place] [address] MCH (RBC) [Entitic mass] 31.8 26.0-34.0 pg Normal 08-16 [facility] (25282) Comment: Performed By: #### HEMDF ### # [facility] [address] [place] [address] MCHC (RBC) [Mass/Vol] 33.7 32.0-36.0 % Normal 08-17-19 19 [facility] (76942) Comment: Performed By: #### HEMDF ### # [facility] [address] [place] [address] MCV (RBC) [Entitic vol] 94.3 79.0-98.0 fL Normal 2018 [facility] (57496) Comment: Performed By: #### HEMDF ### # [facility] [address] [place] [address] Monocytes (Bld) [#/Vol] 0.6 0.0-0.8 10*3/uL Normal 2018 [facility] (15706) Comment: Performed By: #### HEMDF ### # [facility] [address] [place] [address] Monocytes/100 WBC (Bld) 9.1 2.0-10.0 % Normal 2018 [facility] (56911) Comment: Performed By: #### HEMDF ### # [facility] [address] [place] [address] Platelet mean volume (Bld) 8.4 7.4-10.4 fL Normal [facility] [Entitic vol] (64042 ) Comment: Performed By: #### HEMDF ### # [facility] [address] [place] [address] Platelets (Bld) [#/Vol] 265 140-440 10*3/uL Normal 2018 [facility] (70386) Comment: Performed By: #### HEMDF ### # [facility] [address] [place] [address] RBC (Bld) [#/Vol] 4.22 3.80-5.20 10*6/uL Normal 08-16-2018 [facility] (11128) Comment: Performed By: #### HEMDF ### # [facility] [address] [place] [address] WBC (Bld) [#/Vol] 7.0 3.6-10.7 10*3/uL Normal 08-16-2018 [facility] (79454) Comment: Performed By: #### HEMDF ### # [facility] [address] [place] [address] ct abdomen/pelvis w/ contrast on 2018-08-16 CT Abdomen/Pelvis Patient Name: TONYA GUTIÉRREZ 08-16-2018 [facility] w/ Contrast [facility] ([id number]) CT Exam Date/Time 08/16/2018 17:09:[address] Abdomen/Pelvis w/ IV Contrast (IV Onl Ordering Physician DO ROSE PAUL E. Accession Number [id number] CPT4 Codes 77858 (CT Abdomen/Pelvis w/ IV Contrast (IV Onl), Q9967 (CT ISOVUE 370MG/[id number]) Reason For Exam . Report CT ABDOMEN [...] other acute findings. Report Dictated on Workstation: [id number]![email or web address] Final Dictating Physician: MD DE WENDELL Signed [...] BE BASED ON THE PRIMARY CLINICAL RECORDS. [facility] provides no warranty or guarantee of the accuracy or completeness of information in this document. UNRECOGNIZED CONTENT PROVIDED BELOW FOR UNRECOGNIZED SECTION INFORMATION SOURCE DATE CREATED AUTHOR AUTHOR'S ORGANIZATIO N 12/14/2018 [facility] DATE CREATED AUTHOR AUTHOR'S ORGANIZATIO N 07/13/2019 [facility]
== END 2019-07-27 01:00 | disposition home or self-care (01) ==
PROVIDERS: Emergency Provider Emergency Medicine; PCP Family Medicine
DX: M25.562 Pain in left knee (principal); M19.90 Unspecified osteoarthritis, unspecified site; Z87.891 Personal history of nicotine dependence; Z96.652 Presence of left artificial knee joint
CPT/HCPCS: 73564; 80048; 85025; 85652; 86140; 87040; 93971; 99283; A4216

== ENCOUNTER → 2019-09-28 10:31 | Outpatient (CLI) | payer MEDICAID, SELFPAY | PROVIDERS: PCP Family Medicine; Referring Provider Family Medicine; Visit Provider Family Medicine | DX: Z20.828 Contact with and (suspected) exposure to other viral communicable diseases (principal) | CPT/HCPCS: 87635; 94799; U0003 ==

== ENCOUNTER 2020-01-25 17:36 | Emergency (ER) | payer MEDICAID, SELFPAY ==
[2020-01-25 17:36] VITALS: BP 163/92; PULSE 87; RESP 20; TEMP 36.8; O2SAT 99; BMI 35.9
[2020-01-25 17:44] VITALS: PULSE 95; RESP 20; O2SAT 98
--- NOTE | 2020-01-25 17:48 | EKG12_ITS ---
Test Reason : CP Blood Pressure : / mmHG Vent. Rate : 081 BPM Atrial Rate : 081 BPM P-R Int : 170 ms QRS Dur : 080 ms QT Int : 372 ms P-R-T Axes : 070 021 052 degrees QTc Int : 432 ms Normal sinus rhythm Normal ECG Confirmed by ALLAN MARAVILLA, MARCUS ([id number]), acquisitions editor MEY BOYKIN ([id number]) on 01/30/2020 9:21:23 AM Referred By: JANICE Confirmed By:MARCUS LEMUS MD
--- NOTE | 2020-01-25 17:53 | RAD_ITS ---
STUDY: X-RAY CHEST REASON FOR EXAM: Female, 55 years old. upper chest pain. TECHNIQUE: AP portable COMPARISON: 06/25/2019 FINDINGS: The lungs are clear and expanded. There is no demonstrated pleural abnormality. Normal size heart. Normal mediastinum and reina. Normal visualized pulmonary arteries. Mildly calcified aortic arch and descending thoracic aorta. Dorsal spine demonstrates mild spondylosis. Normal visualized ribs, clavicles, and shoulders. There is no demonstrated abnormality of the visualized soft tissue structures of the upper abdomen. No significant change since prior exam RAD/Chest 1 View (Portable) IMPRESSION: No acute cardiopulmonary pathology Electronically Signed: Regan Camejo MD at 18:21 EST , Service support ,
[2020-01-25 18:02] LABS: Absolute Lymphocyte Count 2.06 X10^3/uL (0.83-4.51); Absolute Neutrophil Count 3.9 X10^3/uL (2.0-7.7); Basophil# 0.04 X10^3/uL; Basophil% 0.6 % (0-1); Eosinophil# 0.14 X10^3/uL; Hematocrit 39.9 % (37-47); Hemoglobin 13.8 g/dL (12.0-15.0); Lymphocyte # 2.06 X10^3/ul (4.0); Mean Corp Hgb Conc 34.6 g/dL (32-36); Mean Corpuscular Hgb 33.3 pg (27.0-32.0); Mean Corpuscular Volume 96.4 fL (81-99); Mean Platelet Vol. 10.5 fl (6.2-12.0); Monocyte# 0.97 X10^3/uL; Monocyte% 13.7 % (0-10); NRBC Flagged by Analyzer 0 % (0-5); Neutrophil # 3.87 X10^3/uL (2.7-7.7); Neutrophil % 54.4 % (47-70); Platelet Count 317 K/mm3 (150-450); RBC Distribution Width CV 13.2 % (11.6-14.6); RBC Distribution Width SD 47.1 fl (35.1-43.9); Red Blood Count 4.14 M/mm3 (4.2-5.4); White Blood Count 7.1 K/mm3 (4.4-11.0)
--- NOTE | 2020-01-25 18:13 | ED.VIS.GEN ---
History of Present Illness Chief Complaint: Chest Pain Informant: Patient Narrative: Patient is a 55-year-old female with a past medical history of GERD who presents to the ED for substernal chest pressure. She has had 3 episodes over the past week. She is currently asymptomatic. She states that the pain gets very severe but does not radiate. No shortness of breath associated with this when it happens. They last approximately 30 minutes. She does not know aggravating factors. She does have to sit up during these episodes and wait for it to pass. She denies any leg swelling or calf pain. No history of heart or lung issues. No history of DVT/PE. She denies any recent illness including any cough or fever/chills. She does take omeprazole daily. She does not believe that this is similar to her reflux. She does belch and this typically does help her symptoms. Past Medical History - Allergies and Home Meds Allergies/Adverse Reactions: Allergies No Known Allergies Allergy (Verified 01/25/20 17:42) Primary Care Physician: Bi Higgins DO [Primary Care Provider] - 2 Days Prior records reviewed: Yes Surgical History: total knee arthroplasty Smoking Status: Current every day smoker Review of Systems All systems negative except as indicated General: Denies: Chills, Fever, Sweats Eyes: Denies: Visual changes - bilaterally, Diplopia ENT: Denies: Rhinorrhea, Sore throat Cardiovascular: Reports: Chest pain. Denies: Palpitations Respiratory: Denies: Dyspnea, Cough, Dyspnea on exertion Gastrointestinal: Denies: Abdominal pain, Nausea, Vomiting, Diarrhea Musculoskeletal: Denies: Back pain, Swelling, Extremity Pain Skin: Denies: Rash, Wounds Neurological: Denies: Headache, Weakness, Numbness Physical Exam Vital Signs/Narrative: Vital Signs Temp Pulse Resp BP Pulse Ox 01/25/20 17:44 95 20 H 98 01/25/20 17:36 98.3 F 87 20 H 163/92 H 99 Inital Vital Signs reviewed: Yes General: Well nourished, Well developed, No Acute Distress Head: Normocephalic, Atraumatic Eyes: Perrl, EOMI ENT: Moist mucous membranes, No rhinorrhea Neck: Supple, Nontender Cardiovascular: Regular rate, Regular rhythm, No murmurs Respiratory: No distress, CTA bilaterally, Chest nontender Abdomen: Soft, Nontender, Nondistended, Normal bowel sounds Back: Nontender, Normal Inspection Extremities: Nontender, No edema. Negative for: Calf Tenderness Skin: Normal color, No rash Neurological: Alert, Oriented x3, Cranial nerves II-XII grossly intact, Normal Strength, Normal Sensation Psychological: Normal affect, Normal Mood Diagnostic/Tx/Re-eval Chest X-Ray - ED: - - Single view portable x-ray interpreted by myself. No evidence of consolidation, lung brihgt clear bilaterally. Normal cardiac silhouette. Normal mediastinum. No acute cardiopulmonary process. Agree with radiologist interpretation. - EKG Initial EKG Interpretation: - - Rate of 81 bpm and normal sinus rhythm. Normal intervals. Normal axis. No ST elevations or depressions. No T wave abnormalities. - Medical Decision Making Patient presents to the ED for intermittent chest pain. She is currently asymptomatic. Upon arrival to the emerge department vital signs within normal limits. She is not tachycardic or hypoxic. She does not appear in any acute distress. Physical exam is benign. EKG, chest x-ray basic lab work being obtained. Patient's work-up did not reveal a significant acute abnormality. Her troponin is negative. She has been asymptomatic throughout ED stay. Since her symptoms get better with belching I will treat her with Protonix. She does have a follow-up appoint with her PCP on Tuesday. She is to return to the emergency department if she develops any concerning/worsening chest pain or shortness of breath. I have low concern for PE as she has no symptoms and is PERC negative. Will discharge home in stable condition. All questions were answered. She understands and is agreeable this plan. ED Disposition - Plan for ED Patient: Disposition: Home or Assisted Living Diagnosis: Chest pain Instructions: ED Chest Pain, Uncertain Cause Prescriptions: Pantoprazole Sodium [Protonix] 40 mg PO DAILY #30 tab Transmission Status: Received by [facility] [id number] Referrals: Bi Higgins DO [Primary Care Provider] - 2 Days
[2020-01-25 18:15] LABS: Anion Gap 2 (5-15); BUN 17 mg/dL (7-18); BUN/Creat Ratio 21.4 RATIO (10-20); Calcium,Total 8.7 mg/dL (8.5-10.1); Chloride 110 mmol/L (98-107); Creatinine, Serum 0.79 mg/dL (0.55-1.02); EST Glomerular Filtration Rate 80 mL/min (>60); Est Glom Filt Rate - Afr Amer 97 mL/min (>60); Estimated Creatinine Clearance 83.08 ml/min; Glucose 87 mg/dL (74-106); Sodium Level 143 mmol/L (136-145)
[2020-01-25 18:22] LABS: Prothrombin Time (Protime)PT. 12.4 SECONDS (11.7-14.9)
[2020-01-25 19:32] VITALS: BP 147/85; PULSE 87; RESP 16; O2SAT 99
== END 2020-01-25 19:34 | disposition home or self-care (01) ==
PROVIDERS: Emergency Provider Emergency Medicine; PCP Family Medicine
DX: R07.89 Other chest pain (principal); F17.200 Nicotine dependence, unspecified, uncomplicated; K21.9 Gastro-esophageal reflux disease without esophagitis
CPT/HCPCS: 71045; 80048; 84484; 85025; 85610; 93005; 99284; A4216

== ENCOUNTER → 2020-06-09 13:12 | Outpatient (CLI) | payer MEDICAID, SELFPAY ==
--- NOTE | 2020-06-09 13:17 | CT_ITS ---
STUDY: CT RIGHT LOWER EXTREMITY WITHOUT CONTRAST REASON FOR EXAM: Osteoarthritis of the right knee, surgical planning. TECHNIQUE: Transaxial CT imaging of the lower extremity was performed. Coronal and sagittal images were reformatted. Individualized dose optimization techniques were used for this CT. COMPARISON: None. FINDINGS: Knee: There are marginal osteophytes and joint space narrowing of the medial femorotibial compartment (coronal reconstruction 34) with mild pressure erosion of the medial tibial plateau (sagittal reconstruction 48). There are small marginal osteophytes with preservation of joint space of the lateral femorotibial compartment. There are marginal osteophytes of the patellofemoral articulation with preservation of joint space. Normal proximal tibiofibular articulation. There is a small joint effusion. The quadriceps tendon is grossly normal. The patellar tendon is grossly normal. Normal Hoffa''s fat pad. The soft tissues are unremarkable. Hip: There are small marginal osteophytes of the femoral head with preservation of joint space. Ankle: There is mild joint space narrowing of the medial aspect of the tibiotalar articulation (coronal reconstruction 26). There is joint space narrowing of the talonavicular articulation (sagittal reconstruction 29). Normal posterior subtalar articulation. 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 Electronically Signed: Guanakito Gracia MD at 14:47 EDT Tel , Service support ,
== END ==
PROVIDERS: PCP Family Medicine; Referring Provider Orthopaedic Surgery; Visit Provider Orthopaedic Surgery
DX: M17.11 Unilateral primary osteoarthritis, right knee (principal); M21.161 Varus deformity, not elsewhere classified, right knee
CPT/HCPCS: 73700

== ENCOUNTER 2020-06-23 17:46 | Observation (INO) | payer MEDICAID, SELFPAY ==
[2020-06-09 15:22] LABS: Hematocrit 42.5 % (37-47); Hemoglobin 13.6 g/dL (12.0-15.0); Mean Corpuscular Hgb 31.1 pg (27.0-32.0); Mean Platelet Vol. 11.1 fl (6.2-12.0); Platelet Count 282 K/mm3 (150-450); RBC Distribution Width CV 13.4 % (11.6-14.6); RBC Distribution Width SD 49.1 fl (35.1-43.9); Red Blood Count 4.38 M/mm3 (4.2-5.4); White Blood Count 6.5 K/mm3 (4.4-11.0)
[2020-06-09 15:54] LABS: Anion Gap 7 (5-15); BUN 11 mg/dL (7-18); BUN/Creat Ratio 16.9 RATIO (10-20); Calcium,Total 8.8 mg/dL (8.5-10.1); Chloride 103 mmol/L (98-107); Creatinine, Serum 0.65 mg/dL (0.55-1.02); EST Glomerular Filtration Rate 101 mL/min (>60); Est Glom Filt Rate - Afr Amer 122 mL/min (>60); Glucose 79 mg/dL (74-106); Potassium 4.1 mmol/L (3.5-5.1); Sodium Level 140 mmol/L (136-145)
[2020-06-09 16:15] LABS: Magnesium 2.3 mg/dL (1.6-2.6)
--- NOTE | 2020-06-11 09:00 | EKG12_ITS ---
Test Reason : PRE OP Blood Pressure : / mmHG Vent. Rate : 073 BPM Atrial Rate : 073 BPM P-R Int : 158 ms QRS Dur : 074 ms QT Int : 392 ms P-R-T Axes : 072 044 061 degrees QTc Int : 431 ms Normal sinus rhythm Normal ECG Confirmed by ALLAN MARAVILLA, MARCUS ([id number]), health editor MEY BOYKIN ([id number]) on 06/12/2020 8:54:04 AM Referred By: Edgar Jefferson Confirmed By:MARCUS LEMUS MD
[2020-06-23] VITALS (19 sets, daily range): BP systolic 95–146; BP diastolic 61–89; PULSE 64–86; RESP 16–18; TEMP 36.6–37.5; O2SAT 91–100; BMI 33.5; BMI 33.7
--- NOTE | 2020-06-23 09:44 | EX.PCM.DISCH ---
Discharge Instructions Procedure Total Knee Diet Discharge Diet: No restrictions Activity Discharge Activity: May Not Drive May shower in (days): 1 Ice area for (Minutes): 20 (Every hour while awake.) Weight Bearing Status: Weight bearing as tolerated Keep extremity elevated above heart level: Operative Extremity Dressing / Incision Call your doctor if your incision/area has: Continuous Slow Oozing, Sudden Increased Bleeding, Increased Pain/ Swelling, Increased Redness and Foul Smelling Discharge Call your doctor if you observe: Fever of 101 or Higher, Coldness, Increased Pain (in extremity), Numbness or Tingling, Change in Color, Calf discomfort and Uncontrolled pain Change Dressing in: 1 day Cleanse incision/area with: Soap & Water Follow Up Care Test Results: Test results from this visit will be discussed in further detail at your follow-up appointment, if applicable. Discharge Plan Admission Attending Provider: Edgar Jefferson Primary Care Provider: Bi Higgins Discharge Orders/Prescriptions Prescriptions: Continued omeprazole 20 MG capsule 40 mg PO DAILY RF: 0 albuterol sulfate [Ventolin HFA] 1 INHALER inhaler 1 - 2 puff inhalation Q6H PRN PRN (Reason: Asthma) RF: 0 acetaminophen 500 MG tablet 1,000 mg PO Q8 Qty: 90 RF: 0 buspirone 5 MG tablet 5 mg PO BID RF: 0 cholecalciferol (vitamin D3) 25 MCG tablet 25 mcg PO DAILY RF: 0 Referrals / Follow Up: Bi Higgins DO [Primary Care Provider] -
[2020-06-23] MEDS: Acetaminophen 500 MG Tablet 1000 MG PO ×2 (11:09→21:11)
[2020-06-23] MEDS: Gabapentin 600 MG Tablet PO (11:09)
[2020-06-23 11:16] LABS: Bedside Glucose 91 mg/dL (70-110)
[2020-06-23] MEDS: Lactated Ringers 1,000 ML 100 ML IV (11:25)
[2020-06-23] MEDS: Lactated Ringers 1,000 ML 125 ML IV (11:45)
[2020-06-23] MEDS: Cefazolin 2 GM in 0.9% Normal Saline 100 ML IV (12:10)
--- NOTE | 2020-06-23 12:15 | KNEE_PTH ---
PATIENT: TARI BHATTI LOC: MS3 U#:[id number] AGE/SX: 55/F ROOM: [facility] [place] RE06/23/[address]: Dr. Edgar Jefferson DO : 1965 BED: 1 DIS: 06/24/2020 SPEC #: [id number] RECD: 06/23/20 15:03 STATUS: JOHNATHAN RESofia #: [id number] CONRAD: 06/23/20 12:[address]: Edgar Jefferson DEPT: SURGICAL PATHOLOGY RECD BY: Kika Zapien ENTERED: 06/24/20 08:33 SP TYPE: TOTAL KNEE OTHR DR: Dr. Bi Higgins DO Tissues: Knee, NOS Procedures: Decalcification bone/plaque Surgery Specimen Level IV HEADER OPERATION: ERAS, total knee replacement robotic arm assist PRE-OP DIAGNOSIS: Right knee osteoarthritis TISSUE SUBMITTED: Bone of right knee MICROSCOPIC DIAGNOSIS Bone right knee, total knee replacement/resection: Pieces of bone with degenerative osteoarthritic changes. BRINA:wanda 06/27/2020 MICROSCOPIC DESCRIPTION Slides are reviewed. GROSS DESCRIPTION Received is one container designated bone and soft tissue right knee. The specimen consists of multiple fragments of ruiz-yellow bone measuring in aggregate 10 x 11 x 3 cm. No soft tissue is identified. A number of bony fragments contain articular surfaces consistent with tibial plateau and femoral condyle and displaying prominent osteophyte formation, eburnation, and bone erosion. [facility] sections are submitted in two cassettes after decalcification. / BRINA:wanda 06/24/20 TC:5 CPT: 68703, 28981
--- NOTE | 2020-06-23 13:32 | PCM.OPRPT ---
Report of Operation Date of Procedure: 06/23/20 Pre-Operative Diagnosis: OA right knee Post-Operative Diagnosis: same Surgery/Procedure Performed:: Right TKR corridor redevelopment manager: Tram Type of Anesthesia: General/Regional Specimen's removed: bone Estimated Blood Loss (mL): 25 cc Fluids Replaced: 1000 ml crystalloid Admit VTE Documentation VTE Present on Admission: No VTE Mechan Device Prophylaxis: SCD's VTE Pharm Prophylaxis ordered?: Yes
[2020-06-23] MEDS: Lactated Ringers 1,000 ML 999 ML IV (14:15)
--- NOTE | 2020-06-23 14:45 | RAD_ITS ---
STUDY: X-RAY - RIGHT KNEE REASON FOR EXAM: Female, 55 years old. post op -- AP and Lateral xray of operative knee in PACU TECHNIQUE: 2 view(s) of the knee. COMPARISON: CT of the right lower extremity dated JUNE 09, 2020 FINDINGS: Newly placed tricompartmental hardware is present demonstrating good bony contact and alignment. The tibial stem is cemented. Tract casas are seen in the undersurface of the patella due to placement of a radiolucent prosthetic component. There are expected postoperative changes in the soft tissues and joint including gas, fluid, and swelling. Osteotomy defects are seen in the distal femoral shaft and proximal one third tibial shaft. Multiple overlying skin dav are present. RAD/Knee 1 or 2 Views IMPRESSION: Status post total right knee arthroplasty Electronically Signed: Ralph Roth MD at 16:10 EDT , Service support ,
[2020-06-23] MEDS: Lactated Ringers 1,000 ML 15 ML IV (21:06)
[2020-06-23] MEDS: Cefazolin 1 GM/50 ML BAG IV (21:09)
[2020-06-23] MEDS: Aspirin 81 MG TAB.CHEW PO (21:10)
[2020-06-23] MEDS: Senna/Docusate Sodium 1 Tablet 2 TABLET PO (21:11)
[2020-06-23] MEDS: oxyCODONE 5 MG Tablet PO (23:07)
[2020-06-24 00:43] VITALS: BP 126/65; PULSE 68; RESP 16; TEMP 36.6; O2SAT 100
[2020-06-24] MEDS: Cefazolin 1 GM/50 ML BAG IV (04:08)
[2020-06-24] MEDS: oxyCODONE 5 MG Tablet PO ×4 (04:08→12:11)
[2020-06-24 04:23] VITALS: BP 126/68; PULSE 81; RESP 16; TEMP 36.6; O2SAT 100
[2020-06-24] MEDS: Acetaminophen 500 MG Tablet 1000 MG PO (06:01)
[2020-06-24 07:11] LABS: Mean Corp Hgb Conc 31.4 g/dL (32-36); Mean Corpuscular Hgb 30.6 pg (27.0-32.0); Mean Corpuscular Volume 97.2 fL (81-99); Mean Platelet Vol. 10.9 fl (6.2-12.0); Platelet Count 257 K/mm3 (150-450); RBC Distribution Width CV 13.8 % (11.6-14.6); RBC Distribution Width SD 49.3 fl (35.1-43.9); White Blood Count 14.1 K/mm3 (4.4-11.0)
--- NOTE | 2020-06-24 07:28 | PN.ORTHO_ITS ---
Subjective Subjective: Patient sitting at bedside. Patient states pain is been well managed, but continues to have ongoing pain. Patient states it feels very similar to her pain that she had with her previous left total knee arthroplasty. Patient denies chest pain, shortness of breath, calf pain, nausea vomiting. Patient feels she will be ready to go home this afternoon after therapy. Objective Data Objective Data Vital Signs: Vital Signs Temp Pulse Resp BP Pulse Ox 97.9 F 81 16 126/68 H 100 06/24/20 04:23 06/24/20 04:23 06/24/20 04:23 06/24/20 04:23 06/24/20 04:23 Oxygen Flow Rate (L/min) 6 Oxygen Delivery Method Room Air Weight: 97.6 kg Body Mass Index (BMI) 33.7 Intake & Output: Intake and Output for Last 24 Hours 06/22/20 06/23/20 06/24/20 23:59 23:59 23:59 Intake Total 3485.5 / 4585.5 1750 / 1750 Output Total 500 / 1150 1500 / 1500 Balance 2985.5 / 3435.5 250 / 250 Lab / Micro Data Result Diagrams: 06/24/20 05:45 06/09/20 13:47 Labs: Laboratory Results - last 24 hr 06/23/20 06/24/20 10:40 05:45 WBC 14.1 H RBC 3.60 L Hgb 11.0 L Hct 35.0 L MCV 97.2 MCH 30.6 MCHC 31.4 L RDW Std Deviation 49.3 H RDW Coeff of Noel 13.8 Plt Count 257 MPV 10.9 POC Glucose 91 Micro: Microbiology 06/20/20 08:30 Interface Orders SARS-CoV-2 Antigen (Rapid) - Final 06/09/20 13:47 Swab (Method) Nasal Screen MRSA/MSSA - Final Radiography Diagnostic Testing: Radiology Impression Knee X-Ray 06/23/20 14:45 IMPRESSION: Status post total right knee arthroplasty Electronically Signed: Ralph Roth MD at 16:10 EDT , Service support , Physical Exam Narrative Dressing was clean dry intact. Negative signs and symptoms of DVT. Patient afebrile. Vital signs labs were reviewed noted medical record. Neurovascular patient was otherwise intact. Patient was in no respiratory distress, speaking in full sentences. Assessment & Plan Assessment/Plan (1) Arthritis: PLAN: Postop right total knee arthroplasty 1. Continue all pain medications as prescribed 2. Physical therapy, weight-bear as tolerated with walker. 3. Aspirin 81 mg 1 p.o. every 12 hours x30 days for postop DVT prophylaxis 4. Encourage incentive spirometry 5. Discharge home today after p.m. therapy 6. Patient will continue her outpatient physical therapy at [facility] [place] 7. Patient is to follow-up as scheduled, see pink sheet
[2020-06-24 07:37] LABS: Anion Gap 5 (5-15); BUN 8 mg/dL (7-18); Calcium,Total 8.3 mg/dL (8.5-10.1); Chloride 106 mmol/L (98-107); Creatinine, Serum 0.62 mg/dL (0.55-1.02); EST Glomerular Filtration Rate 108 mL/min (>60); Est Glom Filt Rate - Afr Amer 131 mL/min (>60); Estimated Creatinine Clearance 102.05 ml/min; Glucose 114 mg/dL (74-106); Potassium 4.3 mmol/L (3.5-5.1); Sodium Level 140 mmol/L (136-145)
--- NOTE | 2020-06-24 07:45 | PCM.DC ---
Discharge Instructions Diet Discharge Diet: No restrictions Activity Discharge Activity: May Not Drive May shower in (days): 3 Ice area for (Minutes): 20 (Every hour while awake.) Weight Bearing Status: Weight bearing as tolerated Keep extremity elevated above heart level: Operative Extremity Dressing / Incision Call your doctor if your incision/area has: Continuous Slow Oozing, Sudden Increased Bleeding, Increased Pain/ Swelling, Increased Redness and Foul Smelling Discharge Call your doctor if you observe: Fever of 101 or Higher, Coldness, Increased Pain (in extremity), Numbness or Tingling, Change in Color, Calf discomfort and Uncontrolled pain Cleanse incision/area with: Soap & Water Follow Up Care Test Results: Test results from this visit will be discussed in further detail at your follow-up appointment, if applicable. Discharge Plan Admission Admit Date/Time: 06/23/20 17:46 Attending Provider: Edgar Jefferson Primary Care Provider: Bi Higgins Discharge Orders/Prescriptions Prescriptions: New acetaminophen 500 mg Tablet 1,000 mg PO Q8 MDD 3000mg Qty: 90 RF: 0 aspirin 81 mg Tablet,Chewable 81 mg PO BIDCM Qty: 60 RF: 0 cholecalciferol (vitamin D3) [Vitamin D3] 25 mcg (1,000 unit) Tablet 25 mcg PO DAILY Qty: 30 RF: 0 oxycodone 5 mg Tablet 5 - 10 mg PO Q4H PRN PRN (Reason: Pain Score 4-10) 7 Days Qty: 84 RF: 0 Continued omeprazole 20 MG capsule 40 mg PO DAILY RF: 0 albuterol sulfate [Ventolin HFA] 1 INHALER inhaler 1 - 2 puff inhalation Q6H PRN PRN (Reason: Asthma) RF: 0 acetaminophen 500 MG tablet 1,000 mg PO Q8 Qty: 90 RF: 0 buspirone 5 MG tablet 5 mg PO BID RF: 0 cholecalciferol (vitamin D3) 25 MCG tablet 25 mcg PO DAILY RF: 0 Referrals / Follow Up: Bi Higgins DO [Primary Care Provider] -
[2020-06-24] MEDS: Aspirin 81 MG TAB.CHEW PO (07:59)
[2020-06-24] MEDS: Senna/Docusate Sodium 1 Tablet 2 TABLET PO (08:00)
[2020-06-24] MEDS: busPIRone 5 MG Tablet PO (08:00)
[2020-06-24] MEDS: Pantoprazole Sodium 40 MG Tablet PO (08:00)
[2020-06-24] MEDS: Cholecalciferol (VIT D3) 25 MCG TABLET (1,000 UNITS) PO (08:00)
[2020-06-24 09:00] VITALS: BP 96/82; PULSE 69; RESP 18; TEMP 36.9; O2SAT 100
--- NOTE | 2020-06-24 10:00 | CASEMGMT ---
JIMENA SENA updated by [facility] retail pharmacy that patient will need prior auth for pain medication. JIMENA SENA called [facility] and patient can only fill 28 tabs and then do prior auth. JIMENA SENA updated pharmacy regarding fill for 28 tab. JIMENA SENA called [facility] and requested that they complete prior auth for remainder or prescription. JIMENA SENA faxed prior auth paperwork to [facility]. JIMENA SENA called and updated Linda GAMING regarding prior auth needed for remainder of prescription.
--- NOTE | 2020-06-24 10:30 | CASEMGMT ---
JIMENA SENA Face to Face with patient for initial transition planning/care coordination assessment. RN CM introduced self and role at [facility]. Patient sitting in chair, alert and oriented. Patient willing to participate in assessment and is able to answer all questions appropriately. Care providers, pharmacy, and demographics verified. Patient wishes to discharge home and is setup with [facility] for outpatient therapy. Patient states she has no further needs or concerns at this time. CM to follow for discharge planning needs that may arise. PCP: Gisela Specialists: Ronny Landers Pharmacy: [facility] retail Insurance: [place] Prescription Benefit: yes Living Will/HPOA: none LNOK: Living Arrangements:patient lives with in a mobile home with 5 steps and railing to enter the home. Patietn states she was independent at home prior to surgery. Transportation: DME/HHC: Patient has raised toilet, grab bars, walker at home. Patient is scheduled for outpatient therapy at [facility] starting tomorrow. Disposition Plan: Patient to discharge home with outpatient therapy, family support, and follow-up plans in place. Roxy GONZALEZ, RN, CM
[2020-06-24 14:00] VITALS: BP 100/79; PULSE 70; RESP 18; TEMP 36.7; O2SAT 100
== END 2020-06-24 14:22 | disposition home or self-care (01) ==
LOC: MS3 06-24 07:55 → SDC 06-24 10:31
PROVIDERS: Anesthesiology; Admitting Provider Orthopaedic Surgery; PCP Family Medicine; Referring Provider Orthopaedic Surgery; Visit Provider Orthopaedic Surgery
PROC: 0SRC0JZ Replacement of Right Knee Joint with Synthetic Substitute, Open Approach (ICD-10-PCS; CPT 27447; principal; 2020-06-23 11:45)
DX: M17.11 Unilateral primary osteoarthritis, right knee (principal); F32.9 Major depressive disorder, single episode, unspecified; J45.909 Unspecified asthma, uncomplicated; H54.7 Unspecified visual loss; Z79.899 Other long term (current) drug therapy; F17.200 Nicotine dependence, unspecified, uncomplicated; G25.81 Restless legs syndrome; F17.210 Nicotine dependence, cigarettes, uncomplicated
CPT/HCPCS: 01402; 27447; 64447; S2900; 36415; 73560; 80048; 82962; 83735; 85027; 87081; 87426; 88305; 88311; 93005; 96361; 96365; 96366; 97110; 97116; 97162; 97166; 97530; 97535; 99218; 99251; C1776; C9803; J7120; G0378; G0379; G0463; J2405

== ENCOUNTER 2021-02-06 02:24 | Emergency (ER) | payer MEDICAID, SELFPAY ==
[2021-02-06 02:25] VITALS: BP 118/66; PULSE 84; RESP 16; TEMP 36.5; O2SAT 94; BMI 35.7
--- NOTE | 2021-02-06 02:45 | EDS_ITS ---
HPI History of Present Illness Chief Complaint: Lower Extremity Injury Informant: patient and EMS Narrative Narrative: 56-year-old female arriving to the emergency department via EMS with a chief complaint of left thigh cramp. Patient's has terminal cancer. She is planning a large [employer] libertarian for her family tomorrow. She states that she has been up from was 24 hours and has been very busy taking him to the doctor and planning this libertarian. She states she really has not been drinking or eating as normally as she would. Earlier this evening she had a cramp involving her foot and toes. Had resolved and she went to bed. She woke with a cramp in the medial aspect of the left thigh. She states it was extremely hot to the touch. It went away but then came back. She states now it is feeling like it may have another cramp. She states that it was causing her to have a panic attack. [facility] Medical History (Updated 02/06/21 @ 03:[address] Alejandro Joy, DO) Asthma GERD (gastroesophageal reflux disease) Home Medications albuterol sulfate [Ventolin HFA] 1 - 2 puff INHALATION Q6H PRN PRN 11/08/16 [History Last Taken 04/23/19] omeprazole 40 mg PO DAILY 11/08/16 [History Last Taken 06/23/20 06:00] acetaminophen 1,000 mg PO Q8 #90 tab 04/24/19 [Rx Last Taken Unknown] buspirone 5 mg PO BID 06/09/20 [History Last Taken Unknown] cholecalciferol (vitamin D3) 25 mcg PO DAILY 06/09/20 [History Last Taken Unknown] acetaminophen 1,000 mg PO Q8 #90 tab MDD 3000mg 06/24/20 [Rx Last Taken Unknown] aspirin 81 mg PO BIDCM #60 tab 06/24/20 [Rx Last Taken Unknown] cholecalciferol (vitamin D3) [Vitamin D3] 25 mcg PO DAILY #30 tab 06/24/20 [Rx Last Taken Unknown] oxycodone 5 - 10 mg PO Q4H PRN PRN 7 Days #84 tab 06/24/20 [Rx Last Taken Unknown] Allergy/AdvReac Type Severity Reaction Status Date / Time No Known Allergies Allergy Verified 02/06/21 02:29 Social History (Updated 02/06/21 @ 02:[address] Alejandro Joy, DO) current gender identity: female Smoking Status: Current every day smoker tobacco type: cigarettes ROS ROS ED Constitutional Constitutional ED: Denies chills, fever(s) or weight loss Eyes Eyes: Denies change in vision or diplopia ENT ENT ED: Denies ear pain, rhinorrhea or sore throat Cardiovascular Cardiovascular: Denies chest pain, orthopnea, palpitations or racing heartbeat Respiratory/Chest Respiratory/Chest: Denies cough, dyspnea or orthopnea Gastrointestinal Gastrointestinal: Denies abdominal pain, diarrhea, nausea or vomiting Genitourinary Genitourinary ED: Denies dysuria, hematuria or urinary frequency Musculoskeletal Musculoskeletal: Reports other Details: See HPI ; Denies arthralgias or myalgias Integumentary Denies abscess or rash Neurologic Neurologic: Denies headache(s) or weakness Psychiatric Psychiatric: Reports anxiety and depression; Denies suicidal ideation or suicidal thoughts Endocrine Endocrinology: Denies polydipsia, polyphagia or polyuria Allergic/Immunologic Allergic/Immunologic ED: Denies mouth swelling, tongue swelling or urticaria EXAM Physical Exam Const Vital Signs: 02/06/21 02:25 Temperature 97.7 F L Temperature Source Oral Pulse Rate 84 Respiratory Rate 16 Blood Pressure 118/66 Blood Pressure Mean 83 Pulse Ox 94 Oxygen Delivery Method Room Air Positive well nourished and well developed General Appearance ED: well developed HEENT Reports normocephalic, head/scalp atraumatic, TM's clear and moist mucous membranes Negative for trauma Tympanic Membrane ED: Yes TM's clear Eyes PERRL and EOMs intact bilaterally Neck no lymphadenopathy, supple and no JVD Resp normal respiratory effort and clear to auscultation bilaterally Cardio regular rate, regular rhythm and no murmurs GI normal to inspection, nondistended, normoactive bowel sounds and non-tender Palpation: soft Back/Spine no CVA tenderness and normal ROM Extremity Extremity Narrative: Patient reports some mild tenderness over the posterior medial aspect of the left thigh. There are no palpable cords. The area in question is away from the femoral vein. There is no erythema warmth or lesions noted. Neurovascular intact distally with no swelling. General Extremety ED: Negative for edema General Extremity: Negative for edema Neuro oriented x3 and CN's II-XII intact bilaterally Sensorium / Orientation: alert Motor Exam: strength 5/5 throughout Psych mental status grossly normal Mood & Affect: depressed and tearful Skin no rashes or lesions noted and no wounds MDM MDM MDM Narrative Medical decision making narrative: Patient received IV fluids. Electrolytes appear normal. Renal and liver function appear normal. CBC is normal. Patient is doing better and she would like to be discharged home. Think this was most likely a muscle spasm. Return if worsening or concerns Lab Data Attestation: I reviewed the patient's lab results. Labs: Laboratory Results - last 24 hr 02/06/21 02/06/21 02:55 02:55 WBC 7.5 RBC 4.30 Hgb 13.5 Hct 41.6 MCV 96.7 MCH 31.4 MCHC 32.5 RDW Std Deviation 44.9 H RDW Coeff of Noel 12.6 Plt Count 307 MPV 10.0 Immature Gran % (Auto) 0.100 Neut % (Auto) 56.5 Lymph % (Auto) 30.3 [place] % (Auto) 9.9 Eos % (Auto) 2.8 Baso % (Auto) 0.4 Absolute Neuts (auto) 4.2 Absolute Lymphs (auto) 2.26 Nucleated RBC % 0 Sodium 141 Potassium 4.2 Chloride 104 Carbon Dioxide 31.0 Anion Gap 6 BUN 15 Creatinine 0.66 Estim Creat Clear Calc 94.76 Est GFR (MDRD) Af Amer 119 Est GFR (MDRD) Non-Af 99 BUN/Creatinine Ratio 22.6 H Glucose 106 Calcium 8.9 Total Bilirubin 0.20 AST 16 ALT 27 Alkaline Phosphatase 90 Total Protein 7.5 Albumin 3.6 Globulin 3.9 Albumin/Globulin Ratio 0.9 Discharge Plan Triage Chief Complaint: Lower Extremity Injury ED Provider: Alejandro Joy Dx/Rx/DC Orders Clinical Impression: Muscle spasm Instructions: ED Leg Spasm Prescriptions: No Action omeprazole 20 MG capsule 40 mg PO DAILY RF: 0 albuterol sulfate [Ventolin HFA] 1 INHALER inhaler 1 - 2 puff inhalation Q6H PRN PRN (Reason: Asthma) RF: 0 acetaminophen 500 MG tablet 1,000 mg PO Q8 Qty: 90 RF: 0 buspirone 5 MG tablet 5 mg PO BID RF: 0 cholecalciferol (vitamin D3) 25 MCG tablet 25 mcg PO DAILY RF: 0 acetaminophen 500 mg Tablet 1,000 mg PO Q8 MDD 3000mg Qty: 90 RF: 0 aspirin 81 mg Tablet,Chewable 81 mg PO BIDCM Qty: 60 RF: 0 cholecalciferol (vitamin D3) [Vitamin D3] 25 mcg (1,000 unit) Tablet 25 mcg PO DAILY Qty: 30 RF: 0 oxycodone 5 mg Tablet 5 - 10 mg PO Q4H PRN PRN (Reason: Pain Score 4-10) 7 Days Qty: 84 RF: 0 Primary Care Provider: Bi Higgins Referrals: Bi Higgins DO [Primary Care Provider] - As Needed Disposition Disposition: Home, Self Care
[2021-02-06] MEDS: 0.9% Normal Saline 1,000 ML 1000 ML IV (02:57)
[2021-02-06 03:00] LABS: Absolute Lymphocyte Count 2.26 X10^3/uL (0.83-4.51); Absolute Neutrophil Count 4.2 X10^3/uL (2.0-7.7); Basophil# 0.03 X10^3/uL; Basophil% 0.4 % (0-1); Eosinophil# 0.21 X10^3/uL; Eosinophils% 2.8 % (0-5); Hematocrit 41.6 % (37-47); Hemoglobin 13.5 g/dL (12.0-15.0); Lymphocyte # 2.26 X10^3/ul (0.83-4.51); Lymphocyte % 30.3 % (19-41); Mean Corp Hgb Conc 32.5 g/dL (32-36); Mean Corpuscular Hgb 31.4 pg (27.0-32.0); Mean Corpuscular Volume 96.7 fL (81-99); Monocyte# 0.74 X10^3/uL; Monocyte% 9.9 % (0-10); NRBC Flagged by Analyzer 0 % (0-5); Neutrophil % 56.5 % (47-70); Platelet Count 307 K/mm3 (150-450); RBC Distribution Width CV 12.6 % (11.6-14.6); RBC Distribution Width SD 44.9 fl (35.1-43.9); White Blood Count 7.5 K/mm3 (4.4-11.0)
[2021-02-06 03:17] LABS: ALB/GLOB Ratio 0.9 RATIO (0.9-2.4); AST(SGOT) 16 U/L (15-37); Alanine Aminotransfer ALT/SGPT 27 U/L (13-56); Albumin, Serum 3.6 g/dL (3.2-5.0); Alkaline Phosphatase 90 U/L (45-117); Anion Gap 6 (5-15); BUN 15 mg/dL (7-18); BUN/Creat Ratio 22.6 RATIO (10-20); Calcium,Total 8.9 mg/dL (8.5-10.1); Chloride 104 mmol/L (98-107); Creatinine, Serum 0.66 mg/dL (0.55-1.02); EST Glomerular Filtration Rate 99 mL/min (>60); Est Glom Filt Rate - Afr Amer 119 mL/min (>60); Estimated Creatinine Clearance 94.76 ml/min; Globulin 3.9 g/dL (2.2-4.2); Glucose 106 mg/dL (74-106); Potassium 4.2 mmol/L (3.5-5.1); Protein, Total 7.5 g/dL (6.4-8.2); Sodium Level 141 mmol/L (136-145)
[2021-02-06 03:25] VITALS: RESP 16
== END 2021-02-06 03:30 | disposition home or self-care (01) ==
PROVIDERS: Emergency Provider Emergency Medicine; PCP Family Medicine
DX: M62.838 Other muscle spasm (principal); F17.210 Nicotine dependence, cigarettes, uncomplicated
CPT/HCPCS: 80053; 85025; 99285; J7030; A4216

== ENCOUNTER 2021-05-23 15:47 | Emergency (ER) | payer MEDICAID, SELFPAY ==
[2021-05-23 15:48] VITALS: BP 123/90; PULSE 96; RESP 18; TEMP 36.1; O2SAT 99; BMI 37.1
--- NOTE | 2021-05-23 15:58 | EX.ED.DYSGE1 ---
HPI History of Present Illness Chief Complaint: Lower Extremity Injury Informant: patient Onset/Context/Timing Onset: Today Context: Sudden Onset Timing: Continuous Location: Right lateral malleolus and right dorsal foot Current Severity: Severe Worsened by: use Relieved by: rest Associated Symptoms Associated Symptoms: Swelling Narrative Narrative: Patient slipped this morning and twisted her right ankle. She complains of pain to her right lateral ankle and right dorsal foot. She has noted some associated swelling. No other associated symptoms. The pain is severe and worse with use. She did not hit her head or neck. Denies head or neck pain or loss of consciousness. No blood thinners. No other pain or injuries. Prior similar symptoms: No Recent Illness/Hospitalization: No [facility] Medical History Asthma GERD (gastroesophageal reflux disease) Home Medications albuterol sulfate [Ventolin HFA] 1 - 2 puff INHALATION Q6H PRN PRN 11/08/16 [History Last Taken 04/23/19] omeprazole 40 mg PO DAILY 11/08/16 [History Last Taken 06/23/20 06:00] acetaminophen 1,000 mg PO Q8 #90 tab 04/24/19 [Rx Last Taken Unknown] buspirone 5 mg PO BID 06/09/20 [History Last Taken Unknown] cholecalciferol (vitamin D3) 25 mcg PO DAILY 06/09/20 [History Last Taken Unknown] acetaminophen 1,000 mg PO Q8 #90 tab MDD 3000mg 06/24/20 [Rx Last Taken Unknown] aspirin 81 mg PO BIDCM #60 tab 06/24/20 [Rx Last Taken Unknown] cholecalciferol (vitamin D3) [Vitamin D3] 25 mcg PO DAILY #30 tab 06/24/20 [Rx Last Taken Unknown] oxycodone 5 - 10 mg PO Q4H PRN PRN 7 Days #84 tab 06/24/20 [Rx Last Taken Unknown] Allergy/AdvReac Type Severity Reaction Status Date / Time No Known Allergies Allergy Verified 05/23/21 15:48 Surgical History (Updated 05/23/21 @ 16:12 by Tyler Howard) History of bilateral knee replacement Social History (Updated 02/06/21 @ 02:[address] Alejandro Joy, DO) Smoking Status: Current every day smoker tobacco type: cigarettes ROS ROS ED Constitutional Constitutional ED: Denies fever(s) Eyes Eyes: Denies change in vision ENT ENT ED: Denies ear pain Cardiovascular Cardiovascular: Denies chest pain Respiratory/Chest Respiratory/Chest: Denies dyspnea Gastrointestinal Gastrointestinal: Denies abdominal pain Genitourinary Genitourinary ED: Denies dysuria Musculoskeletal Musculoskeletal: Reports arthralgias and myalgias Integumentary Denies rash Neurologic Neurologic: Denies headache(s), paresthesias or weakness Psychiatric Psychiatric: Denies depression Endocrine Endocrinology: Denies polyuria Allergic/Immunologic Allergic/Immunologic ED: Denies urticaria EXAM Physical Exam Const Vital Signs: 05/23/21 15:48 Temperature 96.9 F L Temperature Source Temporal Pulse Rate 96 Respiratory Rate 18 Blood Pressure 123/90 H Blood Pressure Mean 101 Pulse Ox 99 Oxygen Delivery Method Room Air Positive well nourished and well developed General Appearance ED: well developed HEENT Negative for trauma or tenderness Eyes EOMs intact bilaterally Neck supple Resp normal respiratory effort Cardio regular rate Extremity Extremity Narrative: Diffuse tenderness to right dorsal foot and right lateral malleolus with edema General Extremety ED: Yes edema and tenderness General Extremity: edema Neuro oriented x3 and no sensory deficits noted Sensorium / Orientation: alert Motor Exam: strength 5/5 throughout Psych mental status grossly normal Skin no rashes or lesions noted and no wounds MDM MDM MDM Narrative Medical decision making narrative: Patient declined pain medication. Patient declined ice packs. Will get x-rays of her foot and ankle. X-rays of her right foot and right ankle were reviewed by me directly as well as the radiologist. These were unremarkable for any sign of fracture. She had some soft tissue swelling laterally. Patient will be placed in an Aircast and crutches. Rest, ice, elevate. [id number] remedies for pain. Follow-up with primary care. Return for any new or worsening issues. Impression #1 right foot pain Impression #2 right ankle pain Disposition is discharged home in stable condition Radiography Diagnostic Testing: Clinical Impression(s) from Imaging Studies Ankle X-Ray 05/23/21 16:07 IMPRESSION: Mild lateral ankle soft tissue swelling without demonstrated fracture. Electronically Signed: Negrito Badillo MD ([place]) at 16:36 EDT Reading Location ID and State: [facility] / [place] , Service support , Foot X-Ray 05/23/21 16:07 IMPRESSION: No fracture or malalignment. Electronically Signed: Negrito Badillo MD ([place]) at 16:36 EDT , Discharge Plan Triage Chief Complaint: Lower Extremity Injury ED Provider: Alejandro Rodriguez Dx/Rx/DC Orders Instructions: ED Ankle Sprain (Adult) Prescriptions: No Action omeprazole 20 MG capsule 40 mg PO DAILY RF: 0 albuterol sulfate [Ventolin HFA] 1 INHALER inhaler 1 - 2 puff inhalation Q6H PRN PRN (Reason: Asthma) RF: 0 acetaminophen 500 MG tablet 1,000 mg PO Q8 Qty: 90 RF: 0 buspirone 5 MG tablet 5 mg PO BID RF: 0 cholecalciferol (vitamin D3) 25 MCG tablet 25 mcg PO DAILY RF: 0 acetaminophen 500 mg Tablet 1,000 mg PO Q8 MDD 3000mg Qty: 90 RF: 0 aspirin 81 mg Tablet,Chewable 81 mg PO BIDCM Qty: 60 RF: 0 cholecalciferol (vitamin D3) [Vitamin D3] 25 mcg (1,000 unit) Tablet 25 mcg PO DAILY Qty: 30 RF: 0 oxycodone 5 mg Tablet 5 - 10 mg PO Q4H PRN PRN (Reason: Pain Score 4-10) 7 Days Qty: 84 RF: 0 Primary Care Provider: Bi Higgins Referrals: Bi Higgins DO [Primary Care Provider] - Disposition Disposition: Home, Self Care
--- NOTE | 2021-05-23 16:07 | RAD_ITS ---
STUDY: X-RAY - RIGHT FOOT CLINICAL: Female, 56 years old. slipped, pain across top of foot and lateral ankle TECHNIQUE: 3 view(s) of the foot. COMPARISON: None. FINDINGS: There is a plantar calcaneal spur. Normal visualized subtalar, talonavicular, calcaneocuboid, tarsal and tarsometatarsal articulations. Normal metatarsi. Normal metatarsophalangeal joint of the great toe. Normal tibial and fibular sesamoid bones. Normal interphalangeal joint of the great toe. Normal phalanges of the great toe. Normal second through fifth metatarsophalangeal joints. Normal interphalangeal joints and phalanges of the lesser toes. The soft tissue structures are unremarkable. RAD/Foot min 3 Views IMPRESSION: No fracture or malalignment. Electronically Signed: Negrito Badillo MD ([place]) at 16:36 EDT ,
--- NOTE | 2021-05-23 16:07 | RAD_ITS ---
STUDY: X-RAY - RIGHT ANKLE REASON FOR EXAM: Female, 56 years old. slipped, pain across top of foot and lateral ankle TECHNIQUE: 3 view(s) of the ankle. COMPARISON: None. FINDINGS: Normal visualized distal tibia and fibula. Normal medial and lateral malleoli. Normal tibiotalar articulation and ankle mortise. Small calcaneal spur. The visualized subtalar, talonavicular, calcaneocuboid and tarsal articulations are normal. Lateral ankle soft tissue swelling. RAD/Ankle min 3 Views IMPRESSION: Mild lateral ankle soft tissue swelling without demonstrated fracture. Electronically Signed: Negrito Badillo MD ([place]) at 16:36 EDT ,
[2021-05-23 17:05] VITALS: PULSE 75; RESP 16; O2SAT 99
== END 2021-05-23 17:06 | disposition home or self-care (01) ==
PROVIDERS: Emergency Provider Emergency Medicine; PCP Family Medicine; Visit Provider Emergency Medicine
DX: M79.671 Pain in right foot (principal); M25.571 Pain in right ankle and joints of right foot; F17.210 Nicotine dependence, cigarettes, uncomplicated; X50.1XXA Overexertion from prolonged static or awkward postures, initial encounter
CPT/HCPCS: 73610; 73630; 99283

== ENCOUNTER 2023-09-17 13:57 | Emergency (ER) | payer MEDICAID, SELFPAY ==
[2023-09-17 14:03] VITALS: BP 144/81; PULSE 59; RESP 18; TEMP 36.1; O2SAT 98
== END 2023-09-17 14:13 | disposition left against medical advice (07) ==
LOC: ED 14:14
DX: Z53.21 Procedure and treatment not carried out due to patient leaving prior to being seen by health care provider (principal)